=== PATIENT | female | born 1960 | race Caucasian/White ===

== ENCOUNTER 2016-12-12 09:31 | Inpatient (IN) | payer BC ==
[2016-12-12] MEDS ORDERED: SODIUM CHLORIDE 0.9% 1,000 ML IV STA (10:09)
[2016-12-12] MEDS ORDERED: RX INFO: IV CONTRAST WAS GIVEN 1 EACH MISC MISCELLANE PRN (10:11)
[2016-12-12 10:42] LABS: Anisocytosis Slight; Basophils # (A) 0.1 k/uL (0-0.2); Basophils % (A) 1 %; CH 29.2; CHCM 31.6; Eosinophils # (A) 0.1 k/uL (0-0.7); Eosinophils % (A) 1 %; HCT 46.6 % (34.0-46.0); HDW 2.43; HGB 14.5 gm/dL (11.4-16.0); Luc # (Auto) 0.15; Luc % (Auto) 2; Lymphocytes # (A) 1.3 k/uL (1.0-4.8); Lymphocytes % (A) 14 %; MCHC 31.1 g/dL (31.0-37.0); MCV 93.3 fL (80.0-100.0); Mean Platelet Volume 9.1; Monocytes # (A) 0.7 k/uL (0-1.0); Monocytes % (A) 7 %; Neutrophils # (A) 7.5 k/uL (1.3-7.7); Neutrophils % (A) 76 %; RDW 18.9 % (11.5-15.5); WBC 9.8 k/uL (3.8-10.6); WBC (Perox) 8.89
[2016-12-12 10:48] LABS: ALT 114 U/L (9-52); AST 536 U/L (14-36); Alkaline Phosphatase 858 U/L (38-126); Amylase 77 U/L (30-110); Anion Gap 13 mmol/L; Appearance,Urine Clear (Clear); Bilirubin,Urine 2+ (Negative); Blood Urea Nitrogen 15 mg/dL (7-17); Calcium 10.6 mg/dL (8.4-10.2); Carbon Dioxide 22 mmol/L (22-30); Chloride 106 mmol/L (98-107); Glucose 92 mg/dL (74-99); Glucose,Urine (UA) Negative (Negative); Ketones,Urine Negative (Negative); Leukocyte Esterase,Urine Trace (Negative); Mucus,Urine Rare /hpf; Nitrite,Urine Negative (Negative); Non-African American GFR(MDRD) 58 (>60 ml/min/1.73 sqM); Particle Count 3143; Potassium 5.1 mmol/L (3.5-5.1); Protein,Urine Negative (Negative); Sodium 141 mmol/L (137-145); Specific Gravity,Urine 1.005 (1.001-1.035); Squamous Epithelial Cell,Urine <1 /hpf (0-4); Total Bilirubin 11.2 mg/dL (0.2-1.3); Total Protein 6.7 g/dL (6.3-8.2); UA Billing (MACRO vs. MICRO) MICRO; WBC,Urine 3 /hpf (0-5)
[2016-12-12 10:50] LABS: INR 1.1 (<1.2); Partial Thromboplastin Time 25.5 sec (22.0-30.0); Prothrombin Time 11.2 sec (9.0-12.0)
--- NOTE | 2016-12-12 10:53 | ED ---
General Adult HPI - General Chief complaint: Recheck/Abnormal Lab/Rx Stated complaint: breast lump, jaundice, poss dehydration from vomit Time Seen by Provider: 12/12/16 09:59 Source: patient, RN notes reviewed Mode of arrival: ambulatory Limitations: no limitations - History of Present Illness Initial comments: 56-year-old female presenting with chief complaint yellow skin and jaundice. Patient states that she has had jaundice since which was 4 days ago. Her coworkers initially noticed and encouraged her to seek medical attention. Patient also reports some mild shortness of breath. She has had 3 days of nausea vomiting and diarrhea. Patient states her diarrhea and stool is white. Patient is not currently on any medications. She does have a history of molar she had a breast biopsy on her left breast several years ago. Patient also reports having a lump on her right breast which began in August. She noticed some discoloration and blackening of the center of this mass on her right breast over the past several days. Denies fever. Does report some mild epigastric abdominal pain. - Related Data Home Medications Medication Instructions Recorded Confirmed Green Vitamin Unknown 1 tab PO DAILY 12/12/16 12/12/16 Ibuprofen [Motrin] 200 mg PO DAILY PRN 12/12/16 12/12/16 Thyriod Complex 1 tab PO DAILY 12/12/16 12/12/16 Allergies Allergy/AdvReac Type Severity Reaction Status Date / Time codeine Allergy Unknown Verified 12/12/16 10:18 Review of Systems ROS Statement: Those systems with pertinent positive or pertinent negative responses have been documented in the HPI. ROS Other: All systems not noted in ROS Statement are negative. Respiratory: Reports: dyspnea Cardiovascular: Denies: chest pain, palpitations Endocrine: Reports: fatigue Gastrointestinal: Reports: nausea. Denies: vomiting, diarrhea Past Medical History Past Medical History: Cancer Additional Past Medical History / Comment(s): molar History of Any Multi-Drug Resistant Organisms: None Reported Additional Past Surgical History / Comment(s): molar Past Psychological History: Depression Smoking Status: Former smoker Past Alcohol Use History: None Reported Past Drug Use History: None Reported General Exam Limitations: no limitations General appearance: alert, in no apparent distress Head exam: Present: atraumatic, normocephalic Eye exam: Present: PERRL, scleral icterus ENT exam: Present: normal exam, mucous membranes moist Neck exam: Present: normal inspection, full ROM Respiratory exam: Present: normal lung sounds bilaterally. Absent: respiratory distress Cardiovascular Exam: Present: regular rate, normal rhythm GI/Abdominal exam: Present: soft, tenderness (Midepigastric tenderness to palpation). Absent: guarding, rebound, rigid Extremities exam: Present: other (Ecchymosis present bilateral upper and bilateral lower extremities.) Neurological exam: Present: alert, oriented X3 Psychiatric exam: Present: normal affect, normal mood Skin exam: Present: warm, dry, other (Patient has jaundice, multiple ecchymosis , no petechia). Absent: normal color Course Vital Signs 12/12/16 12/12/16 12/12/16 09:33 10:35 12:35 Temperature 98.0 F 98.3 F Pulse Rate 79 76 78 Respiratory 17 16 18 Rate Blood Pressure 147/97 141/91 137/80 O2 Sat by Pulse 98 98 98 Oximetry EKG Findings - EKG Comments: EKG Findings:: Normal sinus rhythm, ventricular rate 81, NE interval 140, QRS duration 72, QTC 422, there is no ST segment elevation or depression Medical Decision Making - Medical Decision Making 56-year-old female with a four-day history of jaundice and a 3 month history of breast mass. Patient is found to have elevated liver enzymes, elevated alk phos , and hyperbilirubinemia. Computed tomography scan of the chest abdomen and pelvis is obtained. This is significant for liver mass and multiple likely metastatic lesions. Patient will be admitted for further evaluation treatment. Case is discussed with general surgery, oncology and gastroenterology are placed on consult. Ultrasound of the right upper quadrant will be obtained. Diagnosis: Hyperbilirubinemia, liver mass, suspicion for metastatic breast cancer. - Lab Data Result diagrams: 12/12/16 10:17 12/12/16 10:17 Lab Results 12/12/16 12/12/16 12/12/16 Range/Units 10:17 10:17 10:17 WBC 9.8 (3.8-10.6) k/uL RBC 5.00 (3.80-5.40) m/uL Hgb 14.5 (11.4-16.0) gm/dL Hct 46.6 H (34.0-46.0) % MCV 93.3 (80.0-100.0) fL MCH 29.0 (25.0-35.0) pg MCHC 31.1 (31.0-37.0) g/dL RDW 18.9 H (11.5-15.5) % Plt Count 325 (150-450) k/uL Neutrophils % 76 % Lymphocytes % 14 % Monocytes % 7 % Eosinophils % 1 % Basophils % 1 % Neutrophils # 7.5 (1.3-7.7) k/uL Lymphocytes # 1.3 (1.0-4.8) k/uL Monocytes # 0.7 (0-1.0) k/uL Eosinophils # 0.1 (0-0.7) k/uL Basophils # 0.1 (0-0.2) k/uL Anisocytosis Slight PT (9.0-12.0) sec INR (<1.2) APTT (22.0-30.0) sec Sodium 141 (137-145) mmol/L Potassium 5.1 (3.5-5.1) mmol/L Chloride 106 (98-107) mmol/L Carbon Dioxide 22 (22-30) mmol/L Anion Gap 13 mmol/L BUN 15 (7-17) mg/dL Creatinine 1.00 (0.52-1.04) mg/dL Est GFR (MDRD) Af Amer >60 (>60 ml/min/1.73 sqM) Est GFR (MDRD) Non-Af 58 (>60 ml/min/1.73 sqM) Glucose 92 (74-99) mg/dL Plasma Lactic Acid Shabbir 1.4 (0.7-2.0) mmol/L Calcium 10.6 H (8.4-10.2) mg/dL Total Bilirubin 11.2 H (0.2-1.3) mg/dL Conjugated Bilirubin 5.4 H (0.0-0.3) mg/dL Unconjugated Bilirubin 1.5 H (0.0-1.1) mg/dL Delta Bilirubin 4.3 H (0.0-0.2) mg/dL AST 536 H (14-36) U/L ALT 114 H (9-52) U/L Alkaline Phosphatase 858 H (38-126) U/L Total Protein 6.7 (6.3-8.2) g/dL Albumin 3.5 (3.5-5.0) g/dL Amylase 77 (30-110) U/L Lipase 302 H (23-300) U/L Urine Color Urine Appearance (Clear) Urine pH (5.0-8.0) Ur Specific Rumson (1.001-1.035) Urine Protein (Negative) Urine Glucose (UA) (Negative) Urine Ketones (Negative) Urine Blood (Negative) Urine Nitrite (Negative) Urine Bilirubin (Negative) Urine Urobilinogen (<2.0) mg/dL Ur Leukocyte Esterase (Negative) Urine WBC (0-5) /hpf Ur Squamous Epith Cells (0-4) /hpf Urine Mucus (None) /hpf Blood Type Blood Type Recheck Antibody Screen Spec Expiration Date 12/12/16 12/12/16 12/12/16 Range/Units 10:17 10:17 10:17 WBC (3.8-10.6) k/uL RBC (3.80-5.40) m/uL Hgb (11.4-16.0) gm/dL Hct (34.0-46.0) % MCV (80.0-100.0) fL MCH (25.0-35.0) pg MCHC (31.0-37.0) g/dL RDW (11.5-15.5) % Plt Count (150-450) k/uL Neutrophils % % Lymphocytes % % Monocytes % % Eosinophils % % Basophils % % Neutrophils # (1.3-7.7) k/uL Lymphocytes # (1.0-4.8) k/uL Monocytes # (0-1.0) k/uL Eosinophils # (0-0.7) k/uL Basophils # (0-0.2) k/uL Anisocytosis PT 11.2 (9.0-12.0) sec INR 1.1 (<1.2) APTT 25.5 (22.0-30.0) sec Sodium (137-145) mmol/L Potassium (3.5-5.1) mmol/L Chloride (98-107) mmol/L Carbon Dioxide (22-30) mmol/L Anion Gap mmol/L BUN (7-17) mg/dL Creatinine (0.52-1.04) mg/dL Est GFR (MDRD) Af Amer (>60 ml/min/1.73 sqM) Est GFR (MDRD) Non-Af (>60 ml/min/1.73 sqM) Glucose (74-99) mg/dL Plasma Lactic Acid Shabbir (0.7-2.0) mmol/L Calcium (8.4-10.2) mg/dL Total Bilirubin (0.2-1.3) mg/dL Conjugated Bilirubin (0.0-0.3) mg/dL Unconjugated Bilirubin (0.0-1.1) mg/dL Delta Bilirubin (0.0-0.2) mg/dL AST (14-36) U/L ALT (9-52) U/L Alkaline Phosphatase (38-126) U/L Total Protein (6.3-8.2) g/dL Albumin (3.5-5.0) g/dL Amylase (30-110) U/L Lipase (23-300) U/L Urine Color Dark Yellow Urine Appearance Clear (Clear) Urine pH 6.0 (5.0-8.0) Ur Specific Rumson 1.005 (1.001-1.035) Urine Protein Negative (Negative) Urine Glucose (UA) Negative (Negative) Urine Ketones Negative (Negative) Urine Blood Negative (Negative) Urine Nitrite Negative (Negative) Urine Bilirubin 2+ H (Negative) Urine Urobilinogen 2.0 (<2.0) mg/dL Ur Leukocyte Esterase Trace H (Negative) Urine WBC 3 (0-5) /hpf Ur Squamous Epith Cells <1 (0-4) /hpf Urine Mucus Rare H (None) /hpf Blood Type A Negative Blood Type Recheck A Neg Antibody Screen NEGATIVE Spec Expiration Date 12/15/2016 - 2317 Disposition Clinical Impression: Hyperbilirubinemia Disposition: ADMITTED IP TO THIS [facility] Condition: Stable Referrals: None,Stated [Primary Care Provider] - 1-2 days Decision to Admit Reason: Admit from EC Decision Date: 12/12/16 Decision Time: 12:40
--- NOTE | 2016-12-12 11:02 | XR ---
EXAMINATION TYPE: XR chest 2V DATE OF EXAM: 12/12/2016 COMPARISON: NONE HISTORY: Shortness of breath TECHNIQUE: Frontal and lateral views of the chest are obtained. FINDINGS: Scattered senescent parenchymal changes noted. Hyperinflation compatible with COPD. No evidence for infiltrate. No evidence for atelectasis. Heart size is stable. Mediastinal structures are stable and grossly unremarkable. No evidence for hilar prominence. Degenerative changes dorsal spine. IMPRESSION: 1. No evidence for acute pulmonary disease.
[2016-12-12 11:46] LABS: Bilirubin, Delta 4.3 mg/dL (0.0-0.2)
--- NOTE | 2016-12-12 12:09 | CT ---
EXAMINATION TYPE: CT ChestAbdPelvis w con DATE OF EXAM: 12/12/2016 COMPARISON: NONE HISTORY: Jaundice, shortness of breath, right-sided breast lump. History of molar . CT DLP: 2149 mGycm. Automated Exposure Control for Dose Reduction was Utilized. CONTRAST: CT scan of the thorax, abdomen and pelvis is performed without oral but with IV Contrast, patient inj ected with 100 mL of Omnipaque 300. FINDINGS: LUNGS: There is minimal linear scarring in the left lung base. There is no concerning parenchymal no dule or mass. There is no pleural effusion or pneumothorax seen bilaterally. The tracheobronchial tr ee is patent. MEDIASTINUM: There are prominent but not enlarged thoracic lymph nodes. For reference there is 1.5 x 0.9 cm pericarinal lymph node on axial image 20. No cardiomegaly or pericardial is seen. OTHER: There is heterogeneous fibroglandular tissue noted bilaterally in both breasts. There is sugge stion of spiculated subareolar region right breast measuring 2.0 x 1.5 cm on axial image 26 there are suspicious asymmetric the enlarged right axillary lymph nodes, for reference 1.3 x 1.3 cm lymph node is seen on axial image 14. There is suspicious skin thickening to the right breast versus opposite l eft breast. Rounded area with peripheral hyperdense foci in the lower left breast could reflect area of prior bio psy, clinical correlation advised seen best near coronal image 40 LIVER/GB: Liver is overall enlarged in size and markedly heterogeneous in appearance with multiple hy podense areas. There is some surrounding ascites along superior and anterior margins. Findings have a pseudocirrhosis appearance and are suspicious for diffuse metastatic or neoplastic involvement. No s uspicious intrahepatic or extra hepatic biliary dilatation is noted. There is stone filled contracted gallbladder without surrounding inflammatory change. PANCREAS: No significant abnormality is seen. SPLEEN: There are several heterogeneous hypodense round lesions scattered throughout the spleen, for reference is 1.6 cm lesion on long axis posteriorly on axial image 51. ADRENALS: There is suspicious heterogeneous masslike thickening left adrenal gland measuring 2.2 x 1. 5 cm on axial image 58. KIDNEYS: No significant abnormality is seen. BOWEL: There is no suspicious small or large bowel dilatation. GENITAL ORGANS: Uterus is surgically absent. There are small to moderate amount of free fluid in pelv is. There is lobulated slightly more regular thin-walled fluid collection in the left lower quadrant anteriorly near axial image 103, given this does not layer dependently a nonsimple fluid product is s uspected. See lymph node section below. LYMPH NODES: There are suspicious round lesions scattered throughout the mesentery of the lower abdom en/upper pelvis, for reference is 2.2 x 1.2 cm lesion in the midline on axial image 106 and a 1.6 x 1 .6 cm lesion just left of midline anteriorly on axial image 110. OSSEOUS STRUCTURES: There are innumerable sclerotic foci throughout the bony structures consistent wi th osseous metastatic disease most prominent involving the pelvis and the entire spine. Disc space narrowing and spurring at lumbosacral junction is incidentally noted. OTHER: There are vertical alexis overlying the rectus of the lower abdomen. IMPRESSION: 1. Diffuse osseous metastatic disease is present. 2. Small amount of lower abdominal and pelvic ascites with peritoneal carcinomatosis or metastasis sotomayor spected as there is nonlayering effusion with adjacent peritoneal nodularity noted as detailed above. 3. Abnormal right breast mass and axillary adenopathy, correlation with diagnostic bilateral breast m ammogram and diagnostic right breast ultrasound including evaluation of axillary level is advised. Pr imary breast malignancy is suspected. 4. Heterogeneous enlarged liver with multiple hypodense masses throughout liver and spleen raises con cern for neoplasm likely related to primary breast cancer. Imaging guided random liver biopsy for tis rj confirmation can be performed if desired. 5. Suspicious left adrenal mass, malignant involvement at this level cannot be excluded
[2016-12-12] MEDS ORDERED: NALOXONE 0.4 MG/ML 1 ML VIAL IV PRN (12:30)
[2016-12-12] MEDS ORDERED: ONDANSETRON 4 MG/2 ML VIAL IVP PRN (12:30)
--- NOTE | 2016-12-12 13:51 | US ---
EXAMINATION TYPE: US abdomen limited DATE OF EXAM: 12/12/2016 COMPARISON: NONE CLINICAL HISTORY: Pain. Jaundice, liver lesions seen on CT EXAM MEASUREMENTS: Liver Length: 25.5 cm Gallbladder Wall: 0.4 cm CBD: 0.5 cm Right Kidney: 11.4 x 3.2 x 4.2 cm Pancreas: Obscured by bowel gas Liver: enlarged, heterogeneous, multiple complex areas noted Gallbladder: filled with sludge and stones, GB wall upper limits of normal Evidence for sonographic Phillips's sign: no CBD: appears wnl as visualized Right Kidney: no evidence of hydronephrosis IMPRESSION: 1. Heterogeneity of the liver with multiple lesions noted felt to reflect metastatic disease. 2 gallb ladder sludge and stones.
[2016-12-12] MEDS: DEXTROSE 5%-0.45% NACL 1,000 ML IV SCH (14:14)
--- NOTE | 2016-12-12 14:21 | P.GSCN ---
History of Present Illness Consult date: 12/12/16 Reason for Consult: Jaundice abdominal pain. History of present illness: Thank you very much for asking us to see this patient. She is a 56-year-old white female who states a coworker noticed that she was jaundiced. She's had some lower abdominal discomfort then nausea and vomiting and diarrhea over the last 4 days. She noted her stools were almost white in color although this morning was slightly greenish. Some weight loss but she can't quantify it. Diffuse abdominal discomfort. She states she had a left breast mammotome biopsy several years ago that was benign. She also had a palpable area of thickening in the right breast that the apparently was biopsied with a needle bullet was inconclusive. She did not go back for follow-up. Hasn't had a mammogram for at least the 2-3 years now. She noticed the increasing swelling in the right breast around the nipple area with darkening of the skin and the nipple area just above it turning a little black in color. Some tenderness noted with it. No nipple discharge. Past history. Positive for hysterectomy for mono surgery. She states she still has one ovary left in place. History of depression. Otherwise fairly healthy. Social history. Quit smoking several years ago. Drinks alcohol socially. Family history noncontributory. Negative for breast cancer. Systems review as above. No chest pain no cough hemoptysis. No fever or chills. No urinary symptoms. No BOAT CLEANER problems. On examination the patient is well-built well-nourished little overweight with a BMI of the 30.4 weighs 90.71 kg. She is obviously jaundiced. Mucous membranes a little on the dry side. Head and neck otherwise normal. Heart regular rhythm lungs are clear. Breasts shows a mass the in the periareolar region just above it probably about 3-4 cm in diameter seems to be mobile and attached to the skin. There is some overlying skin dimpling and retraction. Skin probably secondary to impending ulceration. Palpable nodes Present in the right axilla although small. The abdomen is soft has a well-healed midline scar in the lower abdomen. Mild the upper abdominal tenderness but no guarding or rebound or rigidity no mass or organomegaly. Extremities normal. BOAT CLEANER intact. Laboratory studies reviewed. Hemoglobin and WBC are normal. Bilirubin is up to 11.2 liver enzymes are markedly elevated. Computed tomography scan with and ultrasound were reviewed. She has multiple liver nodules consistent with metastatic disease. Also evidence of carcinomatosis and fluid and mild ascites in the abdomen with the enlarged left adrenal gland probably secondary to metastatic focus. Also evidence of osseous metastases. GallStones and sludge but the common bile duct is not dilated. Impression. Extensive metastatic disease probably with a breast primary with the involvement of the liver bone and abdominal cavity. The jaundice is probably secondary to intrahepatic masses with intrahepatic obstruction. Commendation. Agree with plans for oncology consultation. Percutaneous CT- guided liver biopsy. Poor prognosis. Further management per oncology recommendation. Nothing surgical to offer at this time. Symptomatic treatment for her nausea will follow with you with interest. Past Medical History Past Medical History: Cancer Additional Past Medical History / Comment(s): molar History of Any Multi-Drug Resistant Organisms: None Reported Additional Past Surgical History / Comment(s): molar Past Psychological History: Depression Smoking Status: Former smoker Past Alcohol Use History: None Reported Past Drug Use History: None Reported Medications and Allergies Home Medications Medication Instructions Recorded Confirmed Type Green Vitamin Unknown 1 tab PO DAILY 12/12/16 12/12/16 History Ibuprofen [Motrin] 200 mg PO DAILY PRN 12/12/16 12/12/16 History Thyriod Complex 1 tab PO DAILY 12/12/16 12/12/16 History Allergies Allergy/AdvReac Type Severity Reaction Status Date / Time codeine Allergy Unknown Verified 12/12/16 10:18 Surgical - Exam Vital Signs Temp Pulse Resp BP Pulse Ox 98.0 F 79 17 147/97 98 12/12/16 09:33 12/12/16 09:33 12/12/16 09:33 12/12/16 09:33 12/12/16 09:33 Results - Labs 12/12/16 10:17 12/12/16 10:17 Abnormal Lab Results - Last 24 Hours (Table) 12/12/16 12/12/16 12/12/16 Range/Units 10:17 10:17 10:17 Hct 46.6 H (34.0-46.0) % RDW 18.9 H (11.5-15.5) % Calcium 10.6 H (8.4-10.2) mg/dL Total Bilirubin 11.2 H (0.2-1.3) mg/dL Conjugated Bilirubin 5.4 H (0.0-0.3) mg/dL Unconjugated Bilirubin 1.5 H (0.0-1.1) mg/dL Delta Bilirubin 4.3 H (0.0-0.2) mg/dL AST 536 H (14-36) U/L ALT 114 H (9-52) U/L Alkaline Phosphatase 858 H (38-126) U/L Lipase 302 H (23-300) U/L Urine Bilirubin 2+ H (Negative) Ur Leukocyte Esterase Trace H (Negative) Urine Mucus Rare H (None) /hpf Diabetes panel 12/12/16 Range/Units 10:17 Sodium 141 (137-145) mmol/L Potassium 5.1 (3.5-5.1) mmol/L Chloride 106 (98-107) mmol/L Carbon Dioxide 22 (22-30) mmol/L BUN 15 (7-17) mg/dL Creatinine 1.00 (0.52-1.04) mg/dL Glucose 92 (74-99) mg/dL Calcium 10.6 H (8.4-10.2) mg/dL AST 536 H (14-36) U/L ALT 114 H (9-52) U/L Alkaline Phosphatase 858 H (38-126) U/L Total Protein 6.7 (6.3-8.2) g/dL Albumin 3.5 (3.5-5.0) g/dL Calcium panel 12/12/16 Range/Units 10:17 Calcium 10.6 H (8.4-10.2) mg/dL Albumin 3.5 (3.5-5.0) g/dL Pituitary panel 12/12/16 Range/Units 10:17 Sodium 141 (137-145) mmol/L Potassium 5.1 (3.5-5.1) mmol/L Chloride 106 (98-107) mmol/L Carbon Dioxide 22 (22-30) mmol/L BUN 15 (7-17) mg/dL Creatinine 1.00 (0.52-1.04) mg/dL Glucose 92 (74-99) mg/dL Calcium 10.6 H (8.4-10.2) mg/dL Adrenal panel 12/12/16 Range/Units 10:17 Sodium 141 (137-145) mmol/L Potassium 5.1 (3.5-5.1) mmol/L Chloride 106 (98-107) mmol/L Carbon Dioxide 22 (22-30) mmol/L BUN 15 (7-17) mg/dL Creatinine 1.00 (0.52-1.04) mg/dL Glucose 92 (74-99) mg/dL Calcium 10.6 H (8.4-10.2) mg/dL Total Bilirubin 11.2 H (0.2-1.3) mg/dL AST 536 H (14-36) U/L ALT 114 H (9-52) U/L Alkaline Phosphatase 858 H (38-126) U/L Total Protein 6.7 (6.3-8.2) g/dL Albumin 3.5 (3.5-5.0) g/dL
[2016-12-13] MEDS: ALPRAZolam 0.5 MG TAB PO PRN ×2 (00:42→22:01)
[2016-12-13] MEDS: DEXTROSE 5%-0.45% NACL 1,000 ML IV SCH ×2 (00:45→11:54)
[2016-12-13 07:43] LABS: Anisocytosis Slight; Basophils # (A) 0.1 k/uL (0-0.2); Basophils % (A) 1 %; CHCM 30.8; Eosinophils # (A) 0.1 k/uL (0-0.7); Eosinophils % (A) 1 %; HCT 49.7 % (34.0-46.0); HGB 15.3 gm/dL (11.4-16.0); Hypochromasia Slight; Luc # (Auto) 0.16; Luc % (Auto) 2; Lymphocytes # (A) 1.5 k/uL (1.0-4.8); Lymphocytes % (A) 17 %; MCH 29.2 pg (25.0-35.0); MCHC 30.7 g/dL (31.0-37.0); MCV 95.1 fL (80.0-100.0); Macrocytosis Slight; Mean Platelet Volume 8.5; Monocytes # (A) 0.6 k/uL (0-1.0); Monocytes % (A) 7 %; Neutrophils # (A) 6.3 k/uL (1.3-7.7); Neutrophils % (A) 73 %; RBC 5.22 m/uL (3.80-5.40); WBC 8.7 k/uL (3.8-10.6); WBC (Perox) 8.13
[2016-12-13 07:53] LABS: ALT 114 U/L (9-52); AST 563 U/L (14-36); Alkaline Phosphatase 795 U/L (38-126); Anion Gap 11 mmol/L; Blood Urea Nitrogen 12 mg/dL (7-17); Calcium 10.7 mg/dL (8.4-10.2); Carbon Dioxide 25 mmol/L (22-30); Chloride 108 mmol/L (98-107); Glucose 73 mg/dL (74-99); Non-African American GFR(MDRD) >60 (>60 ml/min/1.73 sqM); Potassium 4.7 mmol/L (3.5-5.1); Sodium 144 mmol/L (137-145); Total Bilirubin 12.8 mg/dL (0.2-1.3); Total Protein 6.8 g/dL (6.3-8.2)
[2016-12-13] MEDS ORDERED: PANTOPRAZOLE 40 MG/10 ML VIAL IV SCH (09:00)
--- NOTE | 2016-12-13 09:14 | HP ---
CHIEF COMPLAINT: A 56-year-old white female with acute jaundice. HISTORY OF PRESENT ILLNESS: A 56-year-old white female came into the hospital with increasing abdominal discomfort and jaundice. Nausea, vomiting over the past 4 days. Stools are white in color to greenish color and increasing abdominal discomfort. She had a left breast mammotome biopsy several years ago , for 2 or 3 years that were all negative. She has some ( ) in her right breast over the last 2 or 3 months at which time but has done nothing about it. She has history of depression. She has had hysterectomy in the past for molar . She has 1 ovary left. She drinks socially but quite smoking and drinking alcohol about 4 or 5 years ago. She used to drink and smoke heavily for years. Family history is negative for breast cancer. REVIEW OF SYSTEMS: A 14-point review of systems negative except for mentioned in HPI. PHYSICAL EXAM: ENDOCRINE: BMI is over 30, weight is 98.7 kilograms. CARDIOVASCULAR: S1, S2. LUNGS: Transmitted upper airway sounds. GI: Soft, nontender. HEMATOLOGIC: Negative Homans. PSYCH: Fair mood and affect. THORACIC EXAM: Per Dr. Duffy. ABDOMEN: Shows distended abdomen, tender to palpation, firm, mild guarding. EXTREMITIES: No signs of edema. SKIN: Skin is yellow, poor skin turgor. CAT scan and ultrasound were done. Shows multiple liver nodules consistent with metastatic disease. Evidence of carcinomatosis and mild ascites in the abdomen, enlarged left adrenal glands secondary to metastatic focus. Osseous metastases. ASSESSMENT: 1. Extensive metastatic cancer, most likely breast primary, involvement of the liver, bone and abdominal cavity. Intrahepatic mass with obstruction. Oncology consultation, CT guided liver biopsy. Continue with current treatment for pain control. Continue with thyroid medications. Await multiple consultations, recommendations. Hemoglobin appears to be stable at this time. Electrolytes will be placed as mentioned above. 2. Hypercalcemia secondary to malignancy most likely. Continue current treatment. MTDD
[2016-12-13] MEDS: ESOMEPRAZOLE 20 MG in SODIUM CHLORIDE 0.9% 50 ML IVPB SCH (09:19)
--- NOTE | 2016-12-13 10:04 | P.CONS ---
History of Present Illness - Reason for Consult Consult date: 12/13/16 jaundice Requesting physician: Osman Gannon - History of Present Illness 56-year-old female presents with new onset of jaundice upper abdominal pain and dark colored urine since of last week. Consultation requested for elevated liver enzymes/jaundice. CT chest abdomen and pelvis reported diffuse osseous metastatic disease with lower abdominal and pelvic ascites with peritoneal R Cunningham ptosis. Abnormal right breast mass with axillary adenopathy. Enlarged liver with multiple hypodense masses raising concern for neoplasm. Demerol ultrasound heterogeneity of the liver with multiple lesions reflective metastatic disease. Gallbladder sludge and stones. CBD 0.5 cm. Total bilirubin 11.2-12.8. Conjugated bilirubin 5.4. AST 536-563. ALT 114. Alkaline phosphatase 795-858. INR 1.1. Myoglobin 14.5. Platelets 325. Review of Systems Constitutional: Denies fever, chills, sweats, weight gain, or loss. HEENT: Negative for migraines, blurred vision or loss, earaches, drainage, tinnitus, oral mucosal lesions, dysphagia, or odynophagia. CARDIAC: Negative for chest pain, arrhythmias, or palpitation. RESPIRATORY: Negative for shortness of breath, hemoptysis, cough, or sputum production. GI: See HPI for pertinent findings. : Negative for hematuria, urgency, frequency, polyuria, or dysuria. GYNc: Denies possibility of . Negative vaginal discharge. MUSCULOSKELETAL: Negative for muscle aches, swelling, arthritis, and arthralgias. NEUROLOGIC: Negative for stroke or TIA. ENDOCRINE: Negative for thyroid problems. SKIN: Negative for rash or itching. PSYCHIATRIC: History of depression. Past Medical History Past Medical History: Cancer Additional Past Medical History / Comment(s): molar History of Any Multi-Drug Resistant Organisms: None Reported Past Surgical History: Adenoidectomy, Hysterectomy, Tonsillectomy Additional Past Surgical History / Comment(s): molar , benign right breast lump removed 1993, D&C in the 1980s Smoking Status: Former smoker - Past Family History Daughter(s) Family Medical History: Myocardial Infarction ([place]) Additional Family Medical History / Comment(s): in 2008 from a heartattack. Medications and Allergies Home Medications Medication Instructions Recorded Confirmed Type Green Vitamin Unknown 1 tab PO DAILY 12/12/16 12/12/16 History Ibuprofen [Motrin] 200 mg PO DAILY PRN 12/12/16 12/12/16 History Thyriod Complex 1 tab PO DAILY 12/12/16 12/12/16 History Allergies Allergy/AdvReac Type Severity Reaction Status Date / Time codeine Allergy Rash/Hives Verified 12/12/16 17:08 Physical Exam Vitals: Vital Signs Temp Pulse Pulse Resp BP BP Pulse Ox 12/13/16 07:00 96.2 F L 54 L 18 117/71 97 12/13/16 00:15 16 12/12/16 23:00 96.7 F L 68 16 134/99 97 12/12/16 17:29 98.5 F 72 16 138/87 98 12/12/16 16:40 97.8 F 64 16 136/73 99 12/12/16 14:17 70 16 130/69 100 12/12/16 12:35 78 18 137/80 98 12/12/16 10:35 98.3 F 76 16 141/91 98 Intake and Output 12/12/16 12/13/16 12/13/16 22:59 06:59 14:59 Intake Total 1540 1040 Balance 1540 1040 Intake: Intake, IV Titration 800 Amount Dextrose 5%-0.45% NaCl 1, 800 000 ml @ 100 mls/hr IV . Q10H [facility] Rx#:[id number] Oral 1540 240 Other: Voiding Method Toilet Toilet # Voids 2 1 1 General appearance: The patient is alert, oriented, in no acute distress. Visibly jaundice. HET: Head is normocephalic and atraumatic. Pupils are equal and reactive. Sclerae icterus Oropharynx is clear without lesions. Neck: Supple. Trachea midline. Heart: S1 S2. Regular rate and rhythm. Lungs: No crackles or wheezes are heard. Abdomen: Soft, nontender, mildly bloated with bowel sounds. No peritoneal signs. No palpable organomegaly or masses. Extremities: Normal skin color and turgor. No cyanosis, rash, ulceration, clubbing, or edema. Radial and pedal pulses are 2/4 bilaterally. Neurological: No focal deficits. Strength and sensation are grossly intact. Results CBC & Chem 7: 12/13/16 07:24 12/13/16 07:24 Labs: Abnormal Lab Results - Last 24 Hours (Table) 12/12/16 12/12/16 12/12/16 Range/Units 10: 10:17 10:17 Hct 46.6 H (34.0-46.0) % MCHC (31.0-37.0) g/dL RDW 18.9 H (11.5-15.5) % Chloride (98-107) mmol/L Glucose (74-99) mg/dL Calcium 10.6 H (8.4-10.2) mg/dL Total Bilirubin 11.2 H (0.2-1.3) mg/dL Conjugated Bilirubin 5.4 H (0.0-0.3) mg/dL Unconjugated Bilirubin 1.5 H (0.0-1.1) mg/dL Delta Bilirubin 4.3 H (0.0-0.2) mg/dL AST 536 H (14-36) U/L ALT 114 H (9-52) U/L Alkaline Phosphatase 858 H (38-126) U/L Lipase 302 H (23-300) U/L TSH (0.465-4.680) mIU/L Urine Bilirubin 2+ H (Negative) Ur Leukocyte Esterase Trace H (Negative) Urine Mucus Rare H (None) /hpf 12/12/16 12/13/16 12/13/16 Range/Units 10: 07:24 07:24 Hct 49.7 H (34.0-46.0) % MCHC 30.7 L (31.0-37.0) g/dL RDW 19.0 H (11.5-15.5) % Chloride 108 H (98-107) mmol/L Glucose 73 L (74-99) mg/dL Calcium 10.7 H (8.4-10.2) mg/dL Total Bilirubin 12.8 H (0.2-1.3) mg/dL Conjugated Bilirubin (0.0-0.3) mg/dL Unconjugated Bilirubin (0.0-1.1) mg/dL Delta Bilirubin (0.0-0.2) mg/dL AST 563 H (14-36) U/L ALT 114 H (9-52) U/L Alkaline Phosphatase 795 H (38-126) U/L Lipase (23-300) U/L TSH 12.400 H (0.465-4.680) mIU/L Urine Bilirubin (Negative) Ur Leukocyte Esterase (Negative) Urine Mucus (None) /hpf CT scan - abdomen: report reviewed (Dr. Pool) CT scan - chest: report reviewed (Dr. Pool) CT scan - pelvis: report reviewed (Dr. Pool) US - abdomen: report reviewed (Dr. Pool) Assessment and Plan (1) Elevated liver enzymes Narrative/Plan: 56-year-old female presents with right breast mass suspicious for malignancy with new onset of jaundice multiple liver lesions metastatic disease per CT imaging. Suspect elevated liver enzymes jaundice secondary to intrahepatic process malignancy. Status: Acute (2) Jaundice Status: Acute (3) Breast mass, right Status: Acute Plan: 1. Patient has been evaluated by oncology. Breast biopsy has been scheduled possible liver biopsy pending clinical course. Continue supportive measures. Thank you for this kind referral and the opportunity to participate in the care of your patient. This consultation was discussed with Dr. Pool. The impression and plan of care have been directed as dictated.
--- NOTE | 2016-12-13 14:03 | P.CONS ---
History of Present Illness - Reason for Consult Consult date: 12/13/16 jaundice, breast and liver mass Requesting physician: Branden Duffy - Chief Complaint jaundice - History of Present Illness Ms. Knapp is a very pleasant female pt with a history of molar treated in 1997 with chemotherapy and benign right breast biopsy back in 2009. Since that time pt has not followed up as directed by her Surgeon and has not had mammography. For the last week she has progressively become more jaundiced, and she states her right breast "turned black", she denies fevers, sweats, she has had vomiting and dry heaves, no hematemesis, occasional cough, denies SOB, mild abd discomfort, bleeding. Review of Systems All systems: negative Constitutional: Reports as per HPI Past Medical History Past Medical History: Cancer Additional Past Medical History / Comment(s): molar History of Any Multi-Drug Resistant Organisms: None Reported Past Surgical History: Adenoidectomy, Hysterectomy, Tonsillectomy Additional Past Surgical History / Comment(s): molar , benign right breast lump removed 1993, D&C in the Smoking Status: Former smoker - Past Family History Daughter(s) Family Medical History: Myocardial Infarction ([place]) Additional Family Medical History / Comment(s): in 2008 from a heartattack. Medications and Allergies Home Medications Medication Instructions Recorded Confirmed Type Green Vitamin Unknown 1 tab PO DAILY 12/12/16 12/12/16 History Ibuprofen [Motrin] 200 mg PO DAILY PRN 12/12/16 12/12/16 History Thyriod Complex 1 tab PO DAILY 12/12/16 12/12/16 History Allergies Allergy/AdvReac Type Severity Reaction Status Date / Time codeine Allergy Rash/Hives Verified 12/12/16 17:08 Physical Exam Vitals: Vital Signs Temp Pulse Pulse Resp BP BP Pulse Ox 12/13/16 08:00 54 L 18 12/13/16 07:00 96.2 F L 54 L 18 117/71 97 12/13/16 00:15 16 12/12/16 23:00 96.7 F L 68 16 134/99 97 12/12/16 17:29 98.5 F 72 16 138/87 98 12/12/16 16:40 97.8 F 64 16 136/73 99 12/12/16 14:17 70 16 130/69 100 12/12/16 12:35 78 18 137/80 98 Intake and Output 12/12/16 12/13/16 12/13/16 22:59 06:59 14:59 Intake Total 1540 1040 Balance 1540 1040 Intake: Intake, IV Titration 800 Amount Dextrose 5%-0.45% NaCl 1, 800 000 ml @ 100 mls/hr IV . Q10H [facility] Rx#:[id number] Oral 1540 240 Other: Voiding Method Toilet Toilet Toilet # Voids 2 1 1 Weight 90.718 kg Patient Weight 12/14/16 06:59 Weight 90.718 kg - Constitutional General appearance: cooperative, no acute distress, obese - EENT Eyes: EOMI, PERRLA, scleral icterus ENT: hearing grossly normal - Neck Neck: no lymphadenopathy - Respiratory Respiratory: bilateral: CTA - Cardiovascular Rhythm: regular Heart sounds: normal: S1, S2 leg Peripheral Edema: bilateral: None - Gastrointestinal General gastrointestinal: no absent bowel sounds, no decreased bowel sounds, no distended, hepatomegaly, no hyperactive bowel sounds, normal bowel sounds, no organomegaly, no rigid, no scaphoid, soft, no splenomegaly, no tenderness, no umbilical hernia, no ventral hernia - Integumentary Integumentary: jaundiced - Neurologic Neurologic: CNII-XII intact - Musculoskeletal Musculoskeletal: strength equal bilaterally - Psychiatric anxious Psychiatric: A&O x's 3, intact judgment & insight right breast has several subcutaneous hard nodules, 4 o clock skin is discolored , no nipple discharge or inversion Results CBC & Chem 7: 12/13/16 07:24 12/13/16 07:24 Labs: Abnormal Lab Results - Last 24 Hours (Table) 12/12/16 12/12/16 12/13/16 Range/Units 10:17 10: 07:24 Hct 49.7 H (34.0-46.0) % MCHC 30.7 L (31.0-37.0) g/dL RDW 19.0 H (11.5-15.5) % Chloride (98-107) mmol/L Glucose (74-99) mg/dL Calcium (8.4-10.2) mg/dL Total Bilirubin (0.2-1.3) mg/dL Conjugated Bilirubin 5.4 H (0.0-0.3) mg/dL Unconjugated Bilirubin 1.5 H (0.0-1.1) mg/dL Delta Bilirubin 4.3 H (0.0-0.2) mg/dL AST (14-36) U/L ALT (9-52) U/L Alkaline Phosphatase (38-126) U/L TSH 12.400 H (0.465-4.680) mIU/L 12/13/16 Range/Units 07:24 Hct (34.0-46.0) % MCHC (31.0-37.0) g/dL RDW (11.5-15.5) % Chloride 108 H (98-107) mmol/L Glucose 73 L (74-99) mg/dL Calcium 10.7 H (8.4-10.2) mg/dL Total Bilirubin 12.8 H (0.2-1.3) mg/dL Conjugated Bilirubin (0.0-0.3) mg/dL Unconjugated Bilirubin (0.0-1.1) mg/dL Delta Bilirubin (0.0-0.2) mg/dL AST 563 H (14-36) U/L ALT 114 H (9-52) U/L Alkaline Phosphatase 795 H (38-126) U/L TSH (0.465-4.680) mIU/L CT scan - abdomen: report reviewed CT scan - chest: report reviewed CT scan - pelvis: report reviewed Assessment and Plan (1) Liver mass Status: Acute (2) Breast mass, right Status: Acute (3) Jaundice Narrative/Plan: related likely to liver mass. GI consulted. Status: Acute Plan: CT CAP unfortunately is highly suggestive of metastatic malignancy, likely breast origin. Case discussed with Dr. Cueva, Dr. Duffy and Interventional Radiology nurse. Right breast is an appropriate target for core biopsy, the same has been requested. We will follow up once biopsy results available.
[2016-12-13] MEDS ORDERED: ZOLPIDEM 5 MG TAB PO PRN (21:00)
[2016-12-14] MEDS: DEXTROSE 5%-0.45% NACL 1,000 ML IV SCH ×3 (00:21→23:02)
[2016-12-14] MEDS ORDERED: DIAZEPAM 5 MG TAB PO ONE (09:00)
[2016-12-14] MEDS: ESOMEPRAZOLE 20 MG in SODIUM CHLORIDE 0.9% 50 ML IVPB SCH (09:51)
--- NOTE | 2016-12-14 09:57 | USB ---
Ultrasound-guided core biopsy spiculated mass right breast DATE OF EXAM: 12/14/2016 CLINICAL HISTORY: Spiculated mass right breast highly suspicious for malignancy The procedure was discussed with the patient. The risks, complications, benefits , and alternatives were discussed and any questions were answered. Informed consent was obtained. The patient was placed supine on the ultrasound table and prepped and draped in the usual sterile fashion. All elements of maximal barrier technique were utilized. Under ultrasound guidance, access into the right breast mass was obtained, and 4 samples were obtained with a 14-gauge core biopsy. Surgical clip was placed. The patient was stable throughout the procedure and remained stable upon discharge from Department of Radiology. IMPRESSION: Successful core biopsy right breast mass under ultrasound guidance. Pathology Results: Malignant BREAST, RIGHT, NEEDLE CORE BIOPSY: INVASIVE CARCINOMA. PENDING IMMUNOHISTOCHEMICAL STAINS. ADDENDUM REPORT BREAST, RIGHT, NEEDLE CORE BIOPSY: INVASIVE DUCTAL CARCINOMA. Recommendation Surgical consult of the right breast. MEREDITH
--- NOTE | 2016-12-14 12:31 | PN ---
SUBJECTIVE: A 56-year-old white female with breast and liver mass, jaundice, was seen by surgeon today, whose recommendations include acute liver mass, acute breast mass, jaundice, possible GI consult or Interventional Radiology biopsy will be needed to be done. Please see further orders. MTDD
--- NOTE | 2016-12-14 18:26 | P.PN ---
Subjective Principal diagnosis: Metastatic disease Patient underwent percutaneous biopsy of the breast mass today. Mild discomfort at this time. Abdominal pain is improved. Objective - Vital Signs Vital signs: Vital Signs Temp 98.0 F 12/14/16 16:14 Pulse 77 12/14/16 16:14 Resp 18 12/14/16 16:14 BP 116/68 12/14/16 16:14 Pulse Ox 95 12/14/16 16:14 Intake & Output 12/13/16 12/14/16 12/14/16 18:59 06:59 18:59 Intake Total 830 Balance 830 Weight 90.718 kg Intake: Oral 830 Other: Voiding Method Toilet Toilet Toilet # Voids 2 4 2 - Exam Abdomen: Soft, mild distention, mild upper abdominal tenderness - Labs CBC & Chem 7: 12/13/16 07:24 12/13/16 07:24 Assessment and Plan (1) Breast mass, right Narrative/Plan: Await biopsy results. Status: Acute
[2016-12-14] MEDS: ALPRAZolam 0.5 MG TAB PO PRN (20:52)
[2016-12-15] MEDS: DEXTROSE 5%-0.45% NACL 1,000 ML IV SCH ×3 (05:46→21:24)
--- NOTE | 2016-12-15 06:29 | PN ---
SUBJECTIVE: A 56-year-old white female who appears to have breast cancer with metastasis to the liver. She is going to undergo a breast biopsy today by Dr. Tellez. Her abdominal pain and jaundice are slightly improving. We will have to come up with a treatment for her for metastatic cancer once the needle biopsy is done. Oncology and ( ) physician consults are appreciated. Labs are reviewed for today. PSYCH: She is alert and oriented x3. INTEGUMENT: She has some jaundice. CARDIOVASCULAR: S1 and S2. LUNGS: Transmitted upper airway sounds. ASSESSMENT: 1. Liver mass. 2. Breast mass. 3. Jaundice secondary to liver mass. 4. Possible highly suggestive metastatic like malignancy, breast in origin. Await for a biopsy to be done, then will decide what to do for follow up treatment. MTDD
[2016-12-15] MEDS: PANTOPRAZOLE 40 MG TABLET PO SCH (08:39)
[2016-12-15] MEDS: [UNRECOGNIZED DRUG - OTHER] PO SCH ×3 (09:52→09:57)
[2016-12-15] MEDS: ALPRAZolam 0.5 MG TAB PO PRN (10:14)
--- NOTE | 2016-12-15 12:59 | P.PN ---
Subjective Principal diagnosis: Metastatic disease Patient has no new complaints. She feels much weaker when she has not receiving IV fluid therapy. Mild abdominal and right breast discomfort. Pathology reports are still pending. Objective - Vital Signs Vital signs: Vital Signs Temp 97.8 F 12/15/16 08:17 Pulse 65 12/15/16 08:17 Resp 18 12/15/16 08:17 BP 115/74 12/15/16 08:17 Pulse Ox 96 12/15/16 08:17 Intake & Output 12/14/16 12/15/16 12/15/16 18:59 06:59 18:59 Intake Total 450 Balance 450 Intake: Oral 450 Other: Voiding Method Toilet Toilet Toilet # Voids 2 1 - Exam Abdomen: Soft, minimal distention, nontender - Labs CBC & Chem 7: 12/13/16 07:24 12/13/16 07:24 Assessment and Plan (1) Breast mass, right Narrative/Plan: Await final pathology reports from the recent core biopsy. No immediate surgical intervention planned at this time. Status: Acute
[2016-12-15] MEDS ORDERED: ALPRAZolam 0.5 MG TAB PO PRN (18:41)
[2016-12-15] MEDS ORDERED: MAGNESIUM HYDROXIDE 2,400 MG/10 ML CUP PO PRN (18:41)
[2016-12-15] MEDS ORDERED: ALPRAZolam 0.5 MG TAB PO SCH (22:00)
[2016-12-16] MEDS: DEXTROSE 5%-0.45% NACL 1,000 ML IV SCH ×2 (06:17→15:17)
[2016-12-16 08:07] VITALS: RESP 18
[2016-12-16] MEDS: PANTOPRAZOLE 40 MG TABLET PO SCH (10:15)
--- NOTE | 2016-12-16 15:22 | PN ---
DATE OF SERVICE: 12/15/2016 SUBJECTIVE: [id number]-old white female 2 days status post breast biopsy. She still remains profusely jaundiced with liver metastases. Awaiting pathology report tomorrow. Diet will be advanced. Possible discharge home for the weekend with followup with Oncology and Radiation planned for tomorrow. Vital signs stable. Afebrile. Abdomen is soft. It is firm and distended. CARDIOVASCULAR: S1, S2. LUNGS: Wheezes ( ) Integument shows jaundice in the skin. Scleral icterus. 1. Hyperbilirubinemia. 2. Acute jaundice. 3. Acute liver inflammation. 4. Breast cancer with liver metastases. Wait for pathology. Advance diet. PT/OT. Discharge home tomorrow. Follow up as an outpatient. [facility]
[2016-12-16 15:43] VITALS: BP 117/77; PULSE 66; TEMP 98
--- NOTE | 2016-12-16 18:49 | P.PN ---
Progress Note - Text The patient states she feels better. She is asking to be discharged home. On exam her vital signs appear stable. The patient is obviously icteric. Abdomen soft nontender. Breast Cancer with liver metastases. Patient will be discharged home per medicine. She can follow-up in the office as an outpatient.
--- NOTE | 2016-12-16 19:05 | P.PN ---
Subjective Principal diagnosis: metastatic breast cancer Pt seen today in follow up, her mother is at bedside. 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 She feels pretty weak. Denies sore throat, SOB, lower extremity swelling. Objective - Vital Signs Vital signs: Vital Signs Temp 98.0 F 12/16/16 15:42 Pulse 66 12/16/16 15:42 Resp 18 12/16/16 15:42 BP 117/77 12/16/16 15:42 Pulse Ox 96 12/16/16 15:42 Intake & Output 12/15/16 12/16/16 12/16/16 18:59 06:59 18:59 Intake Total 1180 1600 Balance 1180 1600 Intake: Intake, IV Titration 800 Amount Dextrose 5%-0.45% NaCl 1, 800 000 ml @ 100 mls/hr IV . Q10H [facility] Rx#:[id number] Oral 1180 800 Other: Voiding Method Toilet Toilet Toilet # Voids 2 2 2 - Constitutional General appearance: Present: cooperative, no acute distress - EENT Eyes: Present: scleral icterus - Gastrointestinal General gastrointestinal: Present: distended, normal bowel sounds, soft - Integumentary Integumentary: Present: jaundiced - Neurologic Neurologic: Present: CNII-XII intact - Musculoskeletal Musculoskeletal: Present: generalized weakness, strength equal bilaterally - Psychiatric Psychiatric: Present: A&O x's 3, appropriate affect, intact judgment & insight - Labs CBC & Chem 7: 12/13/16 07:24 12/13/16 07:24 Assessment and Plan (1) Liver mass Status: Acute (2) Breast mass, right Status: Acute (3) Jaundice Status: Acute (4) Breast carcinoma Narrative/Plan: We discussed breast biopsy results being positive for breast carcinoma, hormone receptor status pending. Pt has disease in the liver and bones making this stage IV disease and therefore not curable but can be manageable for quite some time with new treatments that are available, we have to wait for the hormone status, results of which should be available next week. I assured her that she will have a follow up appt with Dr. Cueva next week to discuss treatment options. Her and her mother had several questions. Pt asked about mastectomy and it was explained that surgery is not an appropriate treatment modality for her due to extensive disease. She also had a lot of questions about disability but I will refer to Soc Work. All questions answered to the best of my ability. Status: Acute
== END 2016-12-16 20:15 | disposition home or self-care (01) | DRG 598 ==
LOC: EC 09:31 → 5ONC 12:30
PROVIDERS: ADMIT Family Medicine; ATTEND Family Medicine
PROC: 0HBT3ZX Excision of Right Breast, Percutaneous Approach, Diagnostic (ICD-10-PCS; principal; 2016-12-14)
DX: C50.919 Malignant neoplasm of unspecified site of unspecified female breast (principal); C78.7 Secondary malignant neoplasm of liver and intrahepatic bile duct; C79.51 Secondary malignant neoplasm of bone; R18.8 Other ascites; E83.52 Hypercalcemia; E66.3 Overweight; K80.20 Calculus of gallbladder without cholecystitis without obstruction; Z82.49 Family history of ischemic heart disease and other diseases of the circulatory system; Z87.891 Personal history of nicotine dependence; Z88.5 Allergy status to narcotic agent
CPT/HCPCS: 36415; 71020; 71260; 74177; 76705; 80053; 81001; 82150; 82248; 83605; 83690; 84439; 84443; 85025; 85610; 85730; 86850; 86900; 86901; 88305; 88342; 93005

== ENCOUNTER 2016-12-21 12:23 | Inpatient (IN) | payer BC ==
[2016-12-21] MEDS: SODIUM CHLORIDE 0.9% 1,000 ML IV SCH (14:25)
[2016-12-21] MEDS ORDERED: ONDANSETRON 4 MG TAB PO PRN (15:22)
[2016-12-21 15:24] LABS: Anisocytosis Moderate; Basophils % (A) 0 %; CH 28.6; CHCM 30.4; Eosinophils # (A) 0.1 k/uL (0-0.7); Eosinophils % (A) 1 %; HCT 44.6 % (34.0-46.0); HDW 2.58; HGB 13.8 gm/dL (11.4-16.0); Hypochromasia Moderate; Luc # (Auto) 0.23; Luc % (Auto) 3; Lymphocytes # (A) 1.3 k/uL (1.0-4.8); Lymphocytes % (A) 14 %; MCH 29.5 pg (25.0-35.0); MCV 95.2 fL (80.0-100.0); Macrocytosis Slight; Mean Platelet Volume 8.8; Monocytes # (A) 0.6 k/uL (0-1.0); Monocytes % (A) 7 %; Neutrophils # (A) 7.1 k/uL (1.3-7.7); Neutrophils % (A) 76 %; RBC 4.68 m/uL (3.80-5.40); RDW 20.5 % (11.5-15.5); WBC 9.4 k/uL (3.8-10.6); WBC (Perox) 8.87
[2016-12-21 15:32] LABS: AST 505 U/L (14-36); Alkaline Phosphatase 657 U/L (38-126); Anion Gap 11 mmol/L; Blood Urea Nitrogen 17 mg/dL (7-17); Calcium 11.2 mg/dL (8.4-10.2); Carbon Dioxide 21 mmol/L (22-30); Chloride 106 mmol/L (98-107); Glucose 63 mg/dL (74-99); Non-African American GFR(MDRD) 53 (>60 ml/min/1.73 sqM); Potassium 4.5 mmol/L (3.5-5.1); Sodium 138 mmol/L (137-145)
[2016-12-21 15:37] LABS: ALT 77 U/L (9-52)
[2016-12-21 15:41] LABS: Total Bilirubin 15.3 mg/dL (0.2-1.3)
[2016-12-21] MEDS: LORazepam 0.5 MG TAB PO PRN (16:56)
--- NOTE | 2016-12-21 17:05 | XR ---
EXAMINATION TYPE: XR chest 2V DATE OF EXAM: 12/21/2016 HISTORY: effusion. REFERENCE: Previous study dated 12/12/2016. FINDINGS: There is apparent elevation of the right hemidiaphragm. There is atelectatic change at the left lung base and also the right lung base. There is blunting of both CP angles. I could not exclude tiny effusions. The heart is not enlarged. IMPRESSION: 1. BIBASILAR ATELECTASIS. 2. I CANNOT EXCLUDE TINY, BILATERAL EFFUSIONS.
[2016-12-21] MEDS: IBUPROFEN 200 MG TAB PO SCH (21:10)
[2016-12-22] MEDS: LORazepam 0.5 MG TAB PO PRN ×3 (02:59→22:12)
[2016-12-22] MEDS: SODIUM CHLORIDE 0.9% 1,000 ML IV SCH ×2 (05:07→16:07)
[2016-12-22 06:00] LABS: Glucose,Whole Blood 51 mg/dL (75-99)
[2016-12-22 06:29] LABS: Glucose,Whole Blood 54 mg/dL (75-99)
[2016-12-22 06:55] LABS: Glucose,Whole Blood 62 mg/dL (75-99)
[2016-12-22] MEDS: FAMOTIDINE 20 MG TAB PO SCH (09:11)
[2016-12-22] MEDS: IBUPROFEN 200 MG TAB PO SCH ×2 (09:12→22:13)
[2016-12-22 09:19] LABS: Glucose,Whole Blood 92 mg/dL (75-99)
--- NOTE | 2016-12-22 10:44 | P.CONS ---
History of Present Illness - Reason for Consult Consult date: 12/22/16 Jaundice Requesting physician: Osman Gannon - History of Present Illness 56-year-old female recently diagnosed with metastatic breast cancer; bone/liver stage IV noncurable presents with worsening weakness jaundice and generalized discomfort. Consultation requested for jaundice. Patient was seen in consultation on 2016 for jaundice. At that time total bilirubin was between 11.2-12.8. CT chest abdomen and pelvis reported diffuse osseous metastatic disease with lower abdominal pelvic ascites with peritoneal carcinomatosis. Liver overall enlarged markedly heterogeneous with multiple hypodense areas with surrounding ascites. No suspicious intrahepatic or extrahepatic biliary dilatation was noted. Discharge total bilirubin on 12/13/2016 was 12.8. Admission total bilirubin 15.3. AST 505. ALT 77. Alkaline phosphatase 657. Review of Systems Constitutional: Denies fever, chills, sweats, weight gain, or loss. HEENT: Negative for migraines, blurred vision or loss, earaches, drainage, tinnitus, oral mucosal lesions, dysphagia, or odynophagia. CARDIAC: Negative for chest pain, arrhythmias, or palpitation. RESPIRATORY: Negative for shortness of breath, hemoptysis, cough, or sputum production. GI: See HPI for pertinent findings. : Negative for hematuria, urgency, frequency, polyuria, or dysuria. GYNc: Metastatic breast cancer. Denies possibility of . Negative vaginal discharge. MUSCULOSKELETAL: Negative for muscle aches, swelling, arthritis, and arthralgias. NEUROLOGIC: Negative for stroke or TIA. ENDOCRINE: Negative for thyroid problems. SKIN: Negative for rash or itching. PSYCHIATRIC: History of depression. All systems: negative (See HPI) Past Medical History Past Medical History: Cancer Additional Past Medical History / Comment(s): molar . dx with breast ca mets to liver ,bone and abd cavity 12-12-16 History of Any Multi-Drug Resistant Organisms: None Reported Past Surgical History: Adenoidectomy, Hysterectomy, Tonsillectomy Additional Past Surgical History / Comment(s): molar , benign right breast lump removed 1993, D&C in the Past Psychological History: Depression Smoking Status: Former smoker Past Alcohol Use History: None Reported Additional Past Alcohol Use History / Comment(s): quit smoking in 2004, quit drinking alcohol in 2005 Past Drug Use History: None Reported - Past Family History Daughter(s) Family Medical History: Myocardial Infarction ([place]) Additional Family Medical History / Comment(s): in 2008 from a heartattack. Medications and Allergies Home Medications Medication Instructions Recorded Confirmed Type Green Vitamin Unknown 1 tab PO DAILY 12/12/16 12/21/16 History Ibuprofen [Motrin] 200 mg PO BID 12/12/16 12/21/16 History Thyriod Complex 1 tab PO DAILY 12/12/16 12/21/16 History Ondansetron [Zofran] 4 mg PO Q12HR PRN 12/21/16 12/21/16 History Ranitidine HCl [Zantac] 150 mg PO DAILY 12/21/16 12/21/16 History Allergies Allergy/AdvReac Type Severity Reaction Status Date / Time codeine Allergy Rash/Hives Verified 12/21/16 14:10 Physical Exam Vitals: Vital Signs Temp Pulse Resp BP Pulse Ox 12/22/16 07:00 97.4 F L 70 18 118/76 99 12/21/16 20:30 97.5 F L 87 16 109/77 97 12/21/16 15:41 70 18 12/21/16 15:00 97.8 F 70 18 113/82 97 Intake and Output 12/21/16 12/22/16 12/22/16 22:59 06:59 14:59 Intake Total 938 Balance 938 Intake: Intake, IV Titration 938 Amount Sodium Chloride 0.9% 1, 938 000 ml @ 75 mls/hr IV . [id number] [facility] Rx#:[id number] Other: Voiding Method Toilet # Voids 1 1 Weight 101.605 kg General appearance: The patient is alert, oriented, in no acute distress. Visibly jaundice. HET: Head is normocephalic and atraumatic. Pupils are equal and reactive. Sclerae icterus. Oropharynx is clear without lesions. Neck: Supple. Trachea midline. Heart: S1 S2. Regular rate and rhythm. Lungs: No crackles or wheezes are heard. Abdomen: Soft, diffuse mild tenderness with ascites, bloated with bowel sounds. No peritoneal signs. Extremities: Normal skin color and turgor. No cyanosis, rash, ulceration, clubbing, or edema. Radial and pedal pulses are 2/4 bilaterally. Neurological: No focal deficits. Strength and sensation are grossly intact. Results CBC & Chem 7: 12/21/16 15:06 12/21/16 15:06 Labs: Abnormal Lab Results - Last 24 Hours (Table) 12/21/16 12/21/16 12/22/16 Range/Units 15:06 15:06 05:58 RDW 20.5 H (11.5-15.5) % Carbon Dioxide 21 L (22-30) mmol/L Creatinine 1.08 H (0.52-1.04) mg/dL Glucose 63 L (74-99) mg/dL POC Glucose (mg/dL) 51 L (75-99) mg/dL Calcium 11.2 H (8.4-10.2) mg/dL Total Bilirubin 15.3 H* (0.2-1.3) mg/dL AST 505 H (14-36) U/L ALT 77 H (9-52) U/L Alkaline Phosphatase 657 H (38-126) U/L Total Protein 6.0 L (6.3-8.2) g/dL Albumin 2.8 L (3.5-5.0) g/dL 12/22/16 12/22/16 Range/Units 06:27 06:52 RDW (11.5-15.5) % Carbon Dioxide (22-30) mmol/L Creatinine (0.52-1.04) mg/dL Glucose (74-99) mg/dL POC Glucose (mg/dL) 54 L 62 L (75-99) mg/dL Calcium (8.4-10.2) mg/dL Total Bilirubin (0.2-1.3) mg/dL AST (14-36) U/L ALT (9-52) U/L Alkaline Phosphatase (38-126) U/L Total Protein (6.3-8.2) g/dL Albumin (3.5-5.0) g/dL Assessment and Plan (1) Cholestatic jaundice Narrative/Plan: Intrahepatic cholestasis secondary to metastatic liver disease Status: Acute (2) Metastatic breast cancer Status: Acute Plan: 1. We'll defer to oncology for further management. Continue supportive measures. No further workup at this time. Thank you for this kind referral and the opportunity to participate in the care of your patient. This consultation was discussed with Dr. Pool. The impression and plan of care have been directed as dictated.
[2016-12-22 11:51] VITALS: BMI 34.0
[2016-12-22] MEDS: DEXTROSE 5%-0.9% NACL 1,000 ML IV SCH (17:20)
[2016-12-22] MEDS ORDERED: ONDANSETRON 4 MG/2 ML VIAL IVP PRN (17:44)
[2016-12-22] MEDS ORDERED: ONDANSETRON 16 MG in SODIUM CHLORIDE 0.9% 50 ML IVPB ONE (18:30)
[2016-12-22] MEDS ORDERED: DEXAMETHASONE SOD PHOSPHATE 10 MG/ML 1 ML VIAL IV ONE (18:30)
[2016-12-22] MEDS ORDERED: SODIUM CHLORIDE 0.9% 250 ML with PAMIDRONATE 60 MG IV ONE ×2 (18:30)
[2016-12-22] MEDS ORDERED: FOSAPREPITANT DIMEGLUMINE 150 MG in SODIUM CHLORIDE 0.9% 145 ML IV ONE (18:30)
[2016-12-22] MEDS ORDERED: FAMOTIDINE 20 MG/2 ML VIAL IVP ONE (18:30)
--- NOTE | 2016-12-22 18:52 | P.CONS ---
History of Present Illness - Reason for Consult Consult date: 12/22/16 metastatic breast cancer Requesting physician: Osman Gannon - Chief Complaint progressive weakness, confusion - History of Present Illness Bernarda is a very pleasant female who was first seen on consult 2016. At that time patient presented with jaundice of about 1 week onset and a history of a right breast mass, initially identified in 2009, biopsy at that time was negative. The breast mass was enlarging and now causing discoloration to the skin. Patient had CT CAP on 12/12/2016 with reported diffuse osseous metastasis, questionable carcinomatosis, the right breast mass was identified with axillary adenopathy, patient also had a large liver with hypodense lesions in both the liver and the spleen. Patient had an abdominal ultrasound that day as well, gallbladder did show some sludge and stones. Patient had a core biopsy of the right breast on 12/14/2016, positive for recent ductal carcinoma, ER/AK positive, HER-2 is equivocal, fish is pending. Patient was discharged on 12/16 with follow-up with Dr. Anay squires for this week. Unfortunately, over the last few days patient states progressive weakness, she was also having confusion to the point where she couldn't fill out her checks. On admit is noted to have a progressively elevating bilirubin of 15.3, calcium level is 11.2 , she has right upper quadrant as well as epigastric discomfort, patient's appetite is poor but she is very thirsty, she denies any nausea or vomiting, shortness of breath or cough, dysuria or hematuria, she states her urine is turning more yellow since admission, her stools currently are white, she denies diarrhea or constipation, no bleeding or swelling. Review of Systems All systems: negative Constitutional: Reports as per HPI Past Medical History Past Medical History: Cancer Additional Past Medical History / Comment(s): molar . dx with breast ca mets to liver ,bone and abd cavity 12-12-16 History of Any Multi-Drug Resistant Organisms: None Reported Past Surgical History: Adenoidectomy, Hysterectomy, Tonsillectomy Additional Past Surgical History / Comment(s): molar , benign right breast lump removed 1993, D&C in the Past Psychological History: Depression Smoking Status: Former smoker Past Alcohol Use History: None Reported Additional Past Alcohol Use History / Comment(s): quit smoking in 2004, quit drinking alcohol in 2005 Past Drug Use History: None Reported - Past Family History Daughter(s) Family Medical History: Myocardial Infarction ([place]) Additional Family Medical History / Comment(s): in 2008 from a heartattack. Medications and Allergies Home Medications Medication Instructions Recorded Confirmed Type Green Vitamin Unknown 1 tab PO DAILY 12/12/16 12/21/16 History Ibuprofen [Motrin] 200 mg PO BID 12/12/16 12/21/16 History Thyriod Complex 1 tab PO DAILY 12/12/16 12/21/16 History Ondansetron [Zofran] 4 mg PO Q12HR PRN 12/21/16 12/21/16 History Ranitidine HCl [Zantac] 150 mg PO DAILY 12/21/16 12/21/16 History Allergies Allergy/AdvReac Type Severity Reaction Status Date / Time codeine Allergy Rash/Hives Verified 12/21/16 14:10 Physical Exam Vitals: Vital Signs Temp Pulse Resp BP Pulse Ox 12/22/16 15:55 98 12/22/16 15:00 98.0 F 70 18 119/73 98 12/22/16 07:00 97.4 F L 70 18 118/76 99 12/21/16 20:30 97.5 F L 87 16 109/77 97 Intake and Output 12/22/16 12/22/16 12/22/16 06:59 14:59 22:59 Intake Total 938 675 Balance 938 675 Intake: Intake, IV Titration 938 600 Amount Sodium Chloride 0.9% 1, 938 600 000 ml @ 75 mls/hr IV . [id number] [facility] Rx#:[id number] Oral 75 Other: Voiding Method Toilet # Voids 1 Weight 101.605 kg Patient Weight 12/23/16 06:59 Weight 101.605 kg - Constitutional General appearance: cooperative, no acute distress, obese - EENT Eyes: EOMI, scleral icterus ENT: normal oropharynx - Neck Neck: no lymphadenopathy - Respiratory Respiratory: bilateral: CTA - Cardiovascular Rhythm: regular Heart sounds: normal: S1, S2 Abnormal Heart Sounds: no systolic murmur, no diastolic murmur, no rub, no S3 Gallop, no S4 Gallop, no click, no other leg Peripheral Edema: bilateral: None - Gastrointestinal liver edge palpable 2-3 FB below costal margin, hard General gastrointestinal: hepatomegaly, normal bowel sounds, soft, tenderness Localized gastrointestinal: tender: RUQ, epigastric periumbilical - Integumentary Integumentary: jaundiced - Neurologic Neurologic: CNII-XII intact - Musculoskeletal Musculoskeletal: generalized weakness - Psychiatric Pt requires reorientation, has to have information repeated, she is calm, she is readily oriented to self and place. Results CBC & Chem 7: 12/21/16 15:06 12/21/16 15:06 Labs: Abnormal Lab Results - Last 24 Hours (Table) 12/22/16 12/22/16 12/22/16 Range/Units 05:58 06:27 06:52 POC Glucose (mg/dL) 51 L 54 L 62 L (75-99) mg/dL Chest x-ray: report reviewed Assessment and Plan (1) Elevated liver enzymes Status: Acute (2) Metastatic breast cancer Status: Acute (3) Hypercalcemia of malignancy Status: Acute Plan: Case discussed with both Dr. Cueva and Dr. Nur. It is felt that pt symptoms and presentation are due to diffuse malignancy in the liver and for quick response a dose of carboplatin has been recommended. This was discussed with pt and sister at bedside. Purpose of treatment and side effects were discussed. All questions answered and pt is willing to proceed, her sister agrees. Carboplatin dose has been calculated with RN and Pharmacy. One dose to be given inpatient. A dose of aredia for hypercalcemia will be given. Labs daily Closely follow pt with Attending.
[2016-12-22] MEDS ORDERED: CARBOplatin 420 MG in SODIUM CHLORIDE 0.9% 250 ML IV ONE (19:00)
[2016-12-22] MEDS: SALT AND SODA MOUTHWASH 1,000 ML PO SCH ×2 (22:12→22:15)
[2016-12-23] MEDS: SODIUM CHLORIDE 0.9% 1,000 ML IV SCH (07:18)
[2016-12-23 07:58] LABS: INR 1.4 (<1.2); Prothrombin Time 13.5 sec (9.0-12.0)
[2016-12-23 08:02] LABS: ALT 72 U/L (9-52); AST 486 U/L (14-36); Alkaline Phosphatase 626 U/L (38-126); Anion Gap 10 mmol/L; Blood Urea Nitrogen 16 mg/dL (7-17); Calcium 10.1 mg/dL (8.4-10.2); Carbon Dioxide 19 mmol/L (22-30); Chloride 111 mmol/L (98-107); Glucose 136 mg/dL (74-99); Non-African American GFR(MDRD) >60 (>60 ml/min/1.73 sqM); Potassium 4.6 mmol/L (3.5-5.1); Sodium 140 mmol/L (137-145); Total Protein 5.7 g/dL (6.3-8.2)
[2016-12-23 08:19] LABS: Total Bilirubin 15.2 mg/dL (0.2-1.3)
[2016-12-23 08:49] LABS: Anisocytosis Moderate; Basophils % (A) 0 %; CH 29.3; CHCM 30.6; Eosinophils % (A) 0 %; HCT 40.2 % (34.0-46.0); HDW 2.67; HGB 12.8 gm/dL (11.4-16.0); Hypochromasia Moderate; Luc # (Auto) 0.03; Luc % (Auto) 1; Lymphocytes # (A) 0.6 k/uL (1.0-4.8); Lymphocytes % (A) 10 %; MCH 30.7 pg (25.0-35.0); MCHC 31.7 g/dL (31.0-37.0); MCV 96.8 fL (80.0-100.0); Macrocytosis Slight; Mean Platelet Volume 9.5; Monocytes # (A) 0.1 k/uL (0-1.0); Monocytes % (A) 2 %; Neutrophils # (A) 5.2 k/uL (1.3-7.7); Neutrophils % (A) 87 %; RBC 4.16 m/uL (3.80-5.40); RDW 21.6 % (11.5-15.5); WBC 5.9 k/uL (3.8-10.6); WBC (Perox) 6.47
[2016-12-23] MEDS: IBUPROFEN 200 MG TAB PO SCH ×2 (09:28→22:20)
[2016-12-23] MEDS: SALT AND SODA MOUTHWASH 1,000 ML PO SCH ×4 (09:28→22:22)
[2016-12-23] MEDS: DEXTROSE 5%-0.9% NACL 1,000 ML IV SCH ×2 (09:29→22:36)
[2016-12-23] MEDS: FAMOTIDINE 20 MG TAB PO SCH (09:29)
[2016-12-23 10:09] LABS: Manual Review Performed
--- NOTE | 2016-12-23 12:11 | P.PN ---
Subjective Principal diagnosis: Jaundice secondary to malignancy, weakness, metabolic encephalopathy Pt seen today in follow up, she received aredia for hypercalcemia and carboplatin for metastatic breast cancer last evening. Pt states feeling better today, she feels a little more clear in her thoughts, she feels stronger , denies oral irritation, nausea, indigestion, ate a little bit, no dysuria, diarrhea or constipation to report, her mother is at the bedside and feels pt looks less jaundiced and is more alert. Objective - Vital Signs Vital signs: Vital Signs Temp 96.7 F L 12/23/16 07:00 Pulse 62 12/23/16 07:00 Resp 16 12/23/16 07:00 BP 120/83 12/23/16 07:00 Pulse Ox 95 12/23/16 07:00 Intake & Output 12/22/16 12/23/16 12/23/16 18:59 06:59 18:59 Intake Total 675 1450 Balance 675 1450 Weight 101.605 kg Intake: Intake, IV Titration 600 50 Amount Ondansetron 16 mg In 50 Sodium Chloride 0.9% 50 ml @ 100 mls/hr IVPB ONCE ONE Rx#:[id number] Sodium Chloride 0.9% 1, 600 000 ml @ 75 mls/hr IV . [id number] [facility] Rx#:[id number] Oral 75 1400 Other: Voiding Method Toilet # Voids 2 - Constitutional General appearance: Present: cooperative, no acute distress, obese - EENT EENT Comment(s): mucus membranes moist Eyes: Present: EOMI, scleral icterus - Respiratory Respiratory: bilateral: CTA - Cardiovascular Heart sounds: normal: S1, S2 - Peripheral edema leg Peripheral Edema: bilateral: None - Gastrointestinal Gastrointestinal Comment(s): less tenderness in epigastric and RUQ area, softer feel to liver edge, still palpable 2-3 FB below costal margin and in epigastric area General gastrointestinal: Present: soft - Integumentary Integumentary Comment(s): jaundice seems slightly improved Integumentary: Present: jaundiced - Neurologic Neurologic: Present: CNII-XII intact - Musculoskeletal Musculoskeletal: Present: generalized weakness, strength equal bilaterally - Psychiatric Psychiatric Comment(s): Pt has mild confusion, mostly related to events of the last few days, today she has better recall of events. Psychiatric: Present: A&O x's 3, appropriate affect - Labs CBC & Chem 7: 12/23/16 07:23 12/23/16 07:23 Labs: Abnormal Lab Results - Last 24 Hours (Table) 12/23/16 12/23/16 12/23/16 Range/Units 07:23 07:23 07:23 RDW 21.6 H (11.5-15.5) % Lymphocytes # 0.6 L (1.0-4.8) k/uL PT 13.5 H (9.0-12.0) sec INR 1.4 H (<1.2) Chloride 111 H (98-107) mmol/L Carbon Dioxide 19 L (22-30) mmol/L Glucose 136 H (74-99) mg/dL Total Bilirubin 15.2 H* (0.2-1.3) mg/dL AST 486 H (14-36) U/L ALT 72 H (9-52) U/L Alkaline Phosphatase 626 H (38-126) U/L Total Protein 5.7 L (6.3-8.2) g/dL Albumin 2.7 L (3.5-5.0) g/dL Assessment and Plan (1) Metabolic encephalopathy Narrative/Plan: Secondary to liver metastasis and hypercalcemia of malignancy. Pt speech is clearer, she is more alert and responsive today after chemo and bisphosphonate treatment. Status: Acute (2) Elevated liver enzymes Narrative/Plan: Secondary to liver metastasis. Pt has had 1st chemo, CMP daily, hydration continues Status: Acute (3) Hypercalcemia of malignancy Narrative/Plan: Aredia given, labs daily, cont hydration. Status: Acute (4) Metastatic breast cancer Narrative/Plan: Pt has had 1st chemotherapy. She states feeling better today, little stronger, more lucid. Treatment will continue on an outpatient basis. Status: Acute
--- NOTE | 2016-12-23 12:48 | HP ---
CHIEF COMPLAINT: 56 -year-old white female admitted with jaundice for one week , progressively worsening. Unable to eat or drink at home. Got dehydrated. Worsening of the jaundice at which time she came to the hospital. She has right breast mass with invasive breast cancer with multiple liver metastases with discoloration of the skin around the breast area as well as spots on the spleen. She also has gallbladder sludge and stones. Recently diagnosed with invasive carcinoma with exact pathology pending still. Elevated bilirubin of 315 on admission. Calcium 11.2, right upper quadrant and acute abdominal pain. Unable to eat or drink or keep liquids or solids down. Stools are white. Diffuse abdominal pain. REVIEW OF SYSTEMS: Negative except for mentioned in HPI. PAST MEDICAL HISTORY: As mentioned earlier, recent breast cancer with liver and spleen metastases, molar , recently diagnosed in the last two weeks breast cancer history, adenoidectomy, hysterectomy, tonsillectomy, surgery for molar , benign breast lump, D&C 1980s. SOCIAL HISTORY: Former smoker. No alcohol. No illicit drugs. Home medications: 1. Motrin. 2. Thyroid complex. 3. Zofran. 4. Zantac. ALLERGIES: CODEINE. Vital signs: Temp 98, pulse 67. Respiratory rate 12 to 18, blood pressure 110/ 70s. O2 98% on room air. HEENT: Shows severely icteric skin. Ophthalmological : Icteric sclerae. She appears to have distended abdomen due to ascites, obesity. Lungs show mild wheeze times four. Heart is regular rate and rhythm. Psych: Fair mood and affect. Neurological: Alert and oriented times three. Ophthalmological: As mentioned earlier. Musculoskeletal: Generalized weakness 3.5 to 4/5 times four extremities. Labs as mentioned above. Platelet count 63,000. Chest x-ray recent ( ) reviewed. ASSESSMENT: 1. Elevated liver enzymes. 2. Breast cancer, metastatic with liver and splenic mets. 3. Hypercalcemic. 4. Underlying ( ). 5. Dehydration. 6. Generalized debility due to weakness and dehydration and poor nutrition. 7. Worsening jaundice, failing outpatient treatment. Hopefully chemotherapy, radiation treatment can be discussed with the patient. MTDD
[2016-12-23] MEDS: LORazepam 0.5 MG TAB PO PRN (17:29)
[2016-12-23] MEDS: HYDROmorphone 1 MG/ML 1 ML SYRINGE IVP PRN (22:21)
[2016-12-24 07:23] LABS: Anisocytosis Moderate; Basophils % (A) 0 %; CHCM 30.5; Eosinophils # (A) 0.1 k/uL (0-0.7); Eosinophils % (A) 1 %; HCT 41.1 % (34.0-46.0); HGB 12.9 gm/dL (11.4-16.0); Hypochromasia Moderate; Luc # (Auto) 0.13; Luc % (Auto) 1; Lymphocytes # (A) 1.1 k/uL (1.0-4.8); Lymphocytes % (A) 10 %; MCH 30.2 pg (25.0-35.0); MCHC 31.4 g/dL (31.0-37.0); Macrocytosis Slight; Mean Platelet Volume 9.6; Monocytes # (A) 0.5 k/uL (0-1.0); Monocytes % (A) 5 %; Neutrophils # (A) 9.3 k/uL (1.3-7.7); Neutrophils % (A) 84 %; RBC 4.28 m/uL (3.80-5.40); RDW 21.2 % (11.5-15.5); WBC 11.1 k/uL (3.8-10.6); WBC (Perox) 12.04
[2016-12-24 07:35] LABS: Polychromasia Present
[2016-12-24 07:36] LABS: Anion Gap 14 mmol/L; Calcium 9.1 mg/dL (8.4-10.2); Carbon Dioxide 15 mmol/L (22-30); Chloride 113 mmol/L (98-107); Glucose 94 mg/dL (74-99); Non-African American GFR(MDRD) >60 (>60 ml/min/1.73 sqM); Sodium 142 mmol/L (137-145)
[2016-12-24] MEDS: FAMOTIDINE 20 MG TAB PO SCH (07:48)
[2016-12-24] MEDS: IBUPROFEN 200 MG TAB PO SCH ×2 (07:48→20:57)
[2016-12-24] MEDS: SALT AND SODA MOUTHWASH 1,000 ML PO SCH ×4 (07:52→20:31)
[2016-12-24 08:03] LABS: Blood Urea Nitrogen 19 mg/dL (7-17); Potassium 4.8 mmol/L (3.5-5.1)
[2016-12-24 08:04] LABS: ALT 90 U/L (9-52); AST 737 U/L (14-36); Alkaline Phosphatase 623 U/L (38-126); Total Bilirubin 14.2 mg/dL (0.2-1.3)
[2016-12-24 08:36] VITALS: RESP 16
--- NOTE | 2016-12-24 10:02 | PN ---
SUBJECTIVE: 56-year-old white female with jaundice secondary to malignancy, metabolic encephalopathy, weakness. She took Aredia for hypercalcemia and carboplatin for metastatic breast cancer. She feels stronger today, much less jaundiced with less indigestion, nausea. She is more alert. She is feeling a little bit better. VITAL SIGNS: Temp 96.7, pulse 62, respiratory rate 16, blood pressure 120/80, O2 is 95% on room air. CONSTITUTIONAL: Cooperative, no acute distress. ENT: Extraocular movements intact. RESPIRATORY: Clear to auscultation. CARDIOVASCULAR: S1/S2. Peripheral edema, none. GI: Tenderness to palpation is lessened. Diffuse abdomen, firm abdomen. INTEGUMENT: Decrease in jaundice compared to yesterday, still moderate amount of jaundice. NEUROLOGIC: Cranial nerves 2-12 intact. PSYCH: A little bit better affect today. White count is 5.9, hemoglobin 12.8, sodium 140, potassium 4.6. Creatinine 0.88. ASSESSMENT: 1. Metabolic encephalopathy. 2. Elevated liver enzymes due to liver metastasis. 3. Hypercalcemia. 4. Malignancy. 5. Metastatic breast cancer. PLAN: Increase ambulation, increase appetite, continue medications for hypercalcemia and malignancy and continue with outpatient chemotherapy. Once she starts eating better we will send her home. MTDD
[2016-12-24] MEDS: DEXTROSE 5%-0.9% NACL 1,000 ML IV SCH ×2 (10:38→12:58)
[2016-12-24] MEDS ORDERED: HYDROCORTISONE SUPPOSITORY 25 MG SUPP RECTAL PRN (12:00)
[2016-12-24] MEDS ORDERED: HYDROCORTISONE 2.5% RECTAL CREAM 30 GM TUBE RECTAL PRN (12:01)
[2016-12-24] MEDS: traMADol 50 MG TAB PO PRN (12:56)
[2016-12-24] MEDS: HYDROmorphone 1 MG/ML 1 ML SYRINGE IVP PRN (20:30)
[2016-12-24] MEDS: LORazepam 0.5 MG TAB PO PRN (20:30)
[2016-12-25 07:40] LABS: Anisocytosis Moderate; Aty Lym Flag Slight; CH 28.9; CHCM 30.2; HCT 41.4 % (34.0-46.0); HDW 2.72; HGB 12.8 gm/dL (11.4-16.0); Hypochromasia Marked; MCH 29.9 pg (25.0-35.0); MCHC 30.8 g/dL (31.0-37.0); Macrocytosis Moderate; RBC 4.26 m/uL (3.80-5.40); RDW 21.6 % (11.5-15.5); WBC (Perox) 11.63
[2016-12-25] MEDS: FAMOTIDINE 20 MG TAB PO SCH (07:49)
[2016-12-25] MEDS: IBUPROFEN 200 MG TAB PO SCH ×2 (07:50→20:32)
[2016-12-25] MEDS: SALT AND SODA MOUTHWASH 1,000 ML PO SCH ×4 (07:50→20:34)
[2016-12-25] MEDS: traMADol 50 MG TAB PO PRN (07:54)
[2016-12-25 08:13] LABS: ALT 124 U/L (9-52); AST 702 U/L (14-36); Alkaline Phosphatase 738 U/L (38-126); Anion Gap 9 mmol/L; Blood Urea Nitrogen 20 mg/dL (7-17); Calcium 8.5 mg/dL (8.4-10.2); Carbon Dioxide 21 mmol/L (22-30); Chloride 114 mmol/L (98-107); Glucose 70 mg/dL (74-99); Non-African American GFR(MDRD) >60 (>60 ml/min/1.73 sqM); Sodium 144 mmol/L (137-145); Total Bilirubin 14.1 mg/dL (0.2-1.3); Total Protein 5.8 g/dL (6.3-8.2)
[2016-12-25 08:16] LABS: Add Differential Manual Differential
[2016-12-25 08:19] LABS: Nucleated Red Blood Cells 0 /100 WBC (0-0); Polychromasia Present; Total Cells Counted 100
[2016-12-25] MEDS ORDERED: FUROSEMIDE 10 MG/ML 2 ML VIAL IV ONE (10:16)
[2016-12-25] MEDS: DOCUSATE 100 MG CAP PO SCH ×2 (10:52→20:31)
[2016-12-25] MEDS: SPIRONOLACTONE 25 MG TAB PO SCH (10:52)
[2016-12-25] MEDS: DEXTROSE 5%-0.9% NACL 1,000 ML IV SCH ×2 (12:51→16:09)
--- NOTE | 2016-12-25 15:09 | P.PN ---
Subjective Principal diagnosis: Stated feeling "Ok", tired. C/O bilateral lower extremities edema Ambulating with assistance Objective - Vital Signs Vital signs: Vital Signs Temp 97.4 F L 12/25/16 07:00 Pulse 73 12/25/16 07:00 Resp 16 12/25/16 07:00 BP 123/71 12/25/16 07:00 Pulse Ox 98 12/25/16 07:00 Intake & Output 12/24/16 12/25/16 12/25/16 18:59 06:59 18:59 Intake Total 032 149 4510 Balance 506 337 7910 Weight 101.605 kg 101.605 kg Intake: Intake, IV Titration 650 675 900 Amount Dextrose 5%-0.9% NaCl 1, 650 675 900 000 ml @ 75 mls/hr IV . [id number] [facility] Rx#:[id number] Oral 240 1400 Other: Voiding Method Toilet Toilet Toilet # Voids 4 1 4 # Bowel Movements 1 - Constitutional General appearance: Present: average body habitus, no acute distress - EENT Eyes: Present: EOMI, PERRLA, scleral icterus - Neck Neck: Present: normal ROM - Respiratory Respiratory: bilateral: CTA - Cardiovascular Rhythm: regular Heart sounds: normal: S1, S2 - Gastrointestinal General gastrointestinal: Present: soft Localized gastrointestinal: tender: RUQ - Integumentary Integumentary: Present: jaundiced - Neurologic Neurologic: Present: CNII-XII intact - Musculoskeletal Musculoskeletal: Present: gait normal - Psychiatric Psychiatric: Present: A&O x's 3, appropriate affect - Labs CBC & Chem 7: 12/25/16 06:29 12/25/16 06:29 Labs: Abnormal Lab Results - Last 24 Hours (Table) 12/25/16 12/25/16 Range/Units 06:29 06:29 MCHC 30.8 L (31.0-37.0) g/dL RDW 21.6 H (11.5-15.5) % Neutrophils # (Manual) 7.8 H (1.3-7.7) k/uL Chloride 114 H (98-107) mmol/L Carbon Dioxide 21 L (22-30) mmol/L BUN 20 H (7-17) mg/dL Glucose 70 L (74-99) mg/dL Total Bilirubin 14.1 H (0.2-1.3) mg/dL AST 702 H (14-36) U/L ALT 124 H (9-52) U/L Alkaline Phosphatase 738 H (38-126) U/L Total Protein 5.8 L (6.3-8.2) g/dL Albumin 2.6 L (3.5-5.0) g/dL Assessment and Plan (1) Dehydration Status: Acute (2) Metabolic encephalopathy Status: Acute (3) Metastatic breast cancer Status: Acute (4) Jaundice Status: Acute Plan: 1- Reviewed lab results with patient 2- Ambulate as tolerated 3- Ok to discharge home 4- Further Chemotherapy as out-patient
[2016-12-25] MEDS: LORazepam 0.5 MG TAB PO PRN (20:32)
[2016-12-26 07:33] LABS: ALT 144 U/L (9-52); AST 681 U/L (14-36); Alkaline Phosphatase 929 U/L (38-126); Anion Gap 9 mmol/L; Blood Urea Nitrogen 18 mg/dL (7-17); Calcium 7.9 mg/dL (8.4-10.2); Carbon Dioxide 20 mmol/L (22-30); Chloride 114 mmol/L (98-107); Glucose 67 mg/dL (74-99); Non-African American GFR(MDRD) >60 (>60 ml/min/1.73 sqM); Potassium 4.3 mmol/L (3.5-5.1); Sodium 143 mmol/L (137-145); Total Protein 5.5 g/dL (6.3-8.2)
[2016-12-26 08:05] VITALS: PULSE 71
[2016-12-26] MEDS: SPIRONOLACTONE 25 MG TAB PO SCH (08:31)
[2016-12-26] MEDS: SALT AND SODA MOUTHWASH 1,000 ML PO SCH ×2 (08:31→11:19)
[2016-12-26] MEDS: IBUPROFEN 200 MG TAB PO SCH (08:31)
[2016-12-26] MEDS: DOCUSATE 100 MG CAP PO SCH (08:31)
[2016-12-26] MEDS: FAMOTIDINE 20 MG TAB PO SCH (08:31)
[2016-12-26 08:52] LABS: Anisocytosis Moderate; Basophils % (A) 0 %; CH 28.5; CHCM 30.3; Eosinophils % (A) 1 %; HCT 40.6 % (34.0-46.0); HDW 2.75; HGB 12.7 gm/dL (11.4-16.0); Hypochromasia Marked; Luc # (Auto) 0.24; Luc % (Auto) 3; Lymphocytes % (A) 14 %; MCH 29.9 pg (25.0-35.0); MCHC 31.4 g/dL (31.0-37.0); MCV 95.3 fL (80.0-100.0); Macrocytosis Slight; Mean Platelet Volume 10.3; Monocytes # (A) 0.6 k/uL (0-1.0); Monocytes % (A) 9 %; Neutrophils # (A) 5.6 k/uL (1.3-7.7); Neutrophils % (A) 74 %; RBC 4.26 m/uL (3.80-5.40); RDW 21.7 % (11.5-15.5); WBC 7.6 k/uL (3.8-10.6); WBC (Perox) 8.73
--- NOTE | 2016-12-26 11:15 | PN ---
SUBJECTIVE: 56-year-old white female with acute dehydration, acute jaundice. She is constipated. Her oral appetite has improved. She is clinically less jaundiced than she was the last couple of days ago. Possible discharge home in the next 24 hours. Vital signs ( ). Cardiovascular S1, S2. Abdomen is distended due to hepatic metastases with possible cytic ( ) . She has 2 to 3+ pedal edema. Discussed with her. I will give her Lasix 20 mg IV times one today. Started on Aldactone 100 mg daily. Possible discharge home tomorrow. MTDD
[2016-12-26] MEDS: LORazepam 0.5 MG TAB PO PRN (11:19)
[2016-12-26] MEDS: DEXTROSE 5%-0.9% NACL 1,000 ML IV SCH (14:41)
[2016-12-26 16:45] VITALS: BP 109/70; TEMP 97
== END 2016-12-26 19:09 | disposition home or self-care (01) | DRG 435 ==
LOC: 5ONC 13:46
PROVIDERS: ADMIT Family Medicine; ATTEND Family Medicine
DX: C78.7 Secondary malignant neoplasm of liver and intrahepatic bile duct (principal); G93.41 Metabolic encephalopathy; C79.51 Secondary malignant neoplasm of bone; C79.89 Secondary malignant neoplasm of other specified sites; R18.8 Other ascites; C50.911 Malignant neoplasm of unspecified site of right female breast; E83.52 Hypercalcemia; E86.0 Dehydration; K59.00 Constipation, unspecified; K80.20 Calculus of gallbladder without cholecystitis without obstruction; F32.9 Major depressive disorder, single episode, unspecified; Z87.891 Personal history of nicotine dependence; Z79.899 Other long term (current) drug therapy; Z88.8 Allergy status to other drugs, medicaments and biological substances; Z82.49 Family history of ischemic heart disease and other diseases of the circulatory system
CPT/HCPCS: 71020; 80053; 85025; 85610; 94760

== ENCOUNTER 2017-01-10 09:54 | Inpatient (IN) | payer BC ==
[2017-01-10] MEDS ORDERED: ONDANSETRON 4 MG/2 ML VIAL IVP STA (10:27)
[2017-01-10] MEDS ORDERED: SODIUM CHLORIDE 0.9% 1,000 ML IV STA (10:27)
[2017-01-10] MEDS ORDERED: SODIUM CHLORIDE 0.9% 500 ML IV STA (10:27)
--- NOTE | 2017-01-10 10:32 | ED ---
Weakness HPI - General Chief complaint: Weakness Stated complaint: weakness Hx Cancer Time Seen by Provider: 01/10/17 10:15 Source: patient, family, RN notes reviewed Mode of arrival: wheelchair Limitations: no limitations - History of Present Illness Initial comments: This is a 56-year-old female with a history of stage IV breast cancer with metastatic disease to the long who presents with complaints of generalized weakness and difficulty breathing exertional dyspnea lack of energy nausea Also per fmily he is becoming more jaundice. Patient does states she's been able to drink fluids she has decreased oral intake otherwise. No overt fevers chills or sweats she is a former smoker MD Complaint: generalized weakness - Related Data Home Medications Medication Instructions Recorded Confirmed Ibuprofen [Motrin] 200 mg PO BID 12/12/16 01/10/17 Ranitidine HCl [Zantac] 150 mg PO DAILY 12/21/16 01/10/17 LORazepam [Ativan] 0.5 mg PO Q6H PRN 01/10/17 01/10/17 Prochlorperazine [Compazine] 10 mg PO Q6H PRN 01/10/17 01/10/17 Spironolactone [Aldactone] 50 mg PO Q12H 01/10/17 01/10/17 oxyCODONE HCL [Roxicodone] 5 mg PO Q12H PRN 01/10/17 01/10/17 Allergies Allergy/AdvReac Type Severity Reaction Status Date / Time codeine Allergy Rash/Hives Verified 01/10/17 11:44 Review of Systems ROS Statement: Those systems with pertinent positive or pertinent negative responses have been documented in the HPI. ROS Other: All systems not noted in ROS Statement are negative. Past Medical History Past Medical History: Cancer Additional Past Medical History / Comment(s): molar . dx with breast ca mets to liver ,bone and abd cavity 12-12-16 History of Any Multi-Drug Resistant Organisms: None Reported Past Surgical History: Adenoidectomy, Hysterectomy, Tonsillectomy Additional Past Surgical History / Comment(s): molar , benign right breast lump removed 1993, D&C in the Past Psychological History: Depression Smoking Status: Former smoker Past Alcohol Use History: None Reported Past Drug Use History: None Reported - Past Family History Daughter(s) Family Medical History: Myocardial Infarction ([place]) Additional Family Medical History / Comment(s): in 2008 from a heartattack. General Exam - General Exam Comments Initial Comments: Is a well-developed jaundice appearing female she is awake alert oriented 3 Limitations: no limitations General appearance: alert, lethargic Head exam: Present: atraumatic, normocephalic, normal inspection Eye exam: Present: PERRL, EOMI, scleral icterus ENT exam: Present: mucous membranes dry Neck exam: Present: normal inspection. Absent: tenderness, meningismus, lymphadenopathy Respiratory exam: Present: normal lung sounds bilaterally. Absent: respiratory distress, wheezes, rales, rhonchi, stridor Cardiovascular Exam: Present: regular rate, normal rhythm, normal heart sounds. Absent: systolic murmur, diastolic murmur, rubs, gallop, clicks GI/Abdominal exam: Present: soft, normal bowel sounds. Absent: distended, tenderness, guarding, rebound, rigid Extremities exam: Present: full ROM, normal capillary refill, pedal edema. Absent: tenderness, joint swelling, calf tenderness Back exam: Present: normal inspection Neurological exam: Present: alert, oriented X3, CN II-XII intact Psychiatric exam: Present: normal affect, normal mood Skin exam: Present: warm, dry, intact, other (Jaundice). 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 I did discuss [employer] her family she'll be admitted for IV antibiotics IV fluids. - Lab Data Result diagrams: 01/10/17 10:29 Lab Results 01/10/17 01/10/17 01/10/17 Range/Units 10:29 10:29 10:29 Sodium 134 L (137-145) mmol/L Potassium 5.9 H (3.5-5.1) mmol/L Chloride 109 H (98-107) mmol/L Carbon Dioxide 13 L (22-30) mmol/L Anion Gap 12 mmol/L BUN 13 (7-17) mg/dL Creatinine 1.04 (0.52-1.04) mg/dL Est GFR (MDRD) Af Amer >60 (>60 ml/min/1.73 sqM) Est GFR (MDRD) Non-Af 55 (>60 ml/min/1.73 sqM) Glucose 71 L (74-99) mg/dL Calcium 9.6 (8.4-10.2) mg/dL Magnesium 2.1 (1.6-2.3) mg/dL Total Bilirubin 21.9 H* (0.2-1.3) mg/dL AST 476 H (14-36) U/L ALT 74 H (9-52) U/L Alkaline Phosphatase 1006 H (38-126) U/L Ammonia (<30) umol/L Total Creatine Kinase 95 (30-135) U/L CK-MB (CK-2) 1.5 (0.0-2.4) ng/mL CK-MB (CK-2) Rel Index 1.6 NT-Pro-B Natriuret Pep 518 pg/mL Total Protein 6.5 (6.3-8.2) g/dL Albumin 2.9 L (3.5-5.0) g/dL Amylase 58 (30-110) U/L Lipase 204 (23-300) U/L 01/10/17 Range/Units 10:29 Sodium (137-145) mmol/L Potassium (3.5-5.1) mmol/L Chloride (98-107) mmol/L Carbon Dioxide (22-30) mmol/L Anion Gap mmol/L BUN (7-17) mg/dL Creatinine (0.52-1.04) mg/dL Est GFR (MDRD) Af Amer (>60 ml/min/1.73 sqM) Est GFR (MDRD) Non-Af (>60 ml/min/1.73 sqM) Glucose (74-99) mg/dL Calcium (8.4-10.2) mg/dL Magnesium (1.6-2.3) mg/dL Total Bilirubin (0.2-1.3) mg/dL AST (14-36) U/L ALT (9-52) U/L Alkaline Phosphatase (38-126) U/L Ammonia 51 H (<30) umol/L Total Creatine Kinase (30-135) U/L CK-MB (CK-2) (0.0-2.4) ng/mL CK-MB (CK-2) Rel Index NT-Pro-B Natriuret Pep pg/mL Total Protein (6.3-8.2) g/dL Albumin (3.5-5.0) g/dL Amylase (30-110) U/L Lipase (23-300) U/L - Radiology Data Radiology results: report reviewed (I did review the imaging and report is evidence of atelectasis versus developing infiltrate), image reviewed Disposition Clinical Impression: Pneumonia, Dehydration, Jaundice, Metastatic breast cancer, Metabolic encephalopathy Disposition: ADMITTED IP TO THIS [facility] Condition: Stable Referrals: João Gannon MD [REFERRING] - 1-2 days
[2017-01-10 11:11] LABS: ALT 74 U/L (9-52); AST 476 U/L (14-36); Alkaline Phosphatase 1006 U/L (38-126); Amylase 58 U/L (30-110); Anion Gap 12 mmol/L; Blood Urea Nitrogen 13 mg/dL (7-17); Calcium 9.6 mg/dL (8.4-10.2); Carbon Dioxide 13 mmol/L (22-30); Chloride 109 mmol/L (98-107); Glucose 71 mg/dL (74-99); Magnesium 2.1 mg/dL (1.6-2.3); Non-African American GFR(MDRD) 55 (>60 ml/min/1.73 sqM); Potassium 5.9 mmol/L (3.5-5.1); Sodium 134 mmol/L (137-145); Total Protein 6.5 g/dL (6.3-8.2)
[2017-01-10 11:21] LABS: Total Bilirubin 21.9 mg/dL (0.2-1.3)
[2017-01-10] MEDS ORDERED: HYDROmorphone 1 MG/ML 1 ML SYRINGE IVP STA (11:30)
[2017-01-10 11:34] LABS: Creatine Kinase MB 1.5 ng/mL (0.0-2.4)
--- NOTE | 2017-01-10 12:20 | XR ---
EXAMINATION TYPE: XR chest 2V DATE OF EXAM: 01/10/2017 COMPARISON: 12/21/16 HISTORY: Shortness of breath TECHNIQUE: Frontal and lateral views of the chest are obtained. FINDINGS: Lung volumes are limited. Basilar atelectasis or developing infiltrates. Scattered senescent parenchymal changes noted. Heart size is stable. Mediastinal structures are stable and grossly unremarkable. No evidence for hilar prominence. Degenerative changes dorsal spine. IMPRESSION: 1. Lung volumes are limited. Basilar atelectasis or developing infiltrates.
[2017-01-10 13:48] LABS: Anisocytosis Marked; Basophils % (A) 0 %; CH 30.8; CHCM 31.2; Eosinophils % (A) 0 %; HCT 44.6 % (34.0-46.0); HDW 3.22; HGB 13.8 gm/dL (11.4-16.0); Hypochromasia Moderate; Luc # (Auto) 0.31; Luc % (Auto) 4; Lymphocytes # (A) 0.5 k/uL (1.0-4.8); Lymphocytes % (A) 6 %; MCH 31.1 pg (25.0-35.0); MCHC 30.9 g/dL (31.0-37.0); Macrocytosis Marked; Mean Platelet Volume 9.2; Monocytes # (A) 0.6 k/uL (0-1.0); Monocytes % (A) 9 %; Neutrophils # (A) 5.8 k/uL (1.3-7.7); Neutrophils % (A) 81 %; RBC 4.43 m/uL (3.80-5.40); WBC 7.2 k/uL (3.8-10.6); WBC (Perox) 9.33
[2017-01-10] MEDS ORDERED: PIPERACILLIN-TAZOBACTAM 3.375 GM in DEXTROSE/WATER 1 50ML.BAG IVPB STA (13:49)
[2017-01-10 14:13] LABS: RDW 25.4 % (11.5-15.5)
[2017-01-10 14:17] LABS: MCV 100.6 fL (80.0-100.0)
[2017-01-10] MEDS ORDERED: PNEUMONIA PROTOCOL UTILIZED 1 EACH MISC PO PRN (14:18)
[2017-01-10 15:16] LABS: Manual Review Performed; Target Cells Present
[2017-01-10 15:18] LABS: Polychromasia Present
[2017-01-10] MEDS: HYDROmorphone 1 MG/ML 1 ML SYRINGE IVP PRN ×2 (16:50→19:56)
[2017-01-10] MEDS: SODIUM CHLORIDE 0.9% 1,000 ML IV SCH (19:55)
[2017-01-10] MEDS: LEVOFLOXACIN 750MG-D5W PMX 750 MG in DEXTROSE/WATER 1 150ML.BAG IVPB SCH (19:55)
[2017-01-10] MEDS: IPRATROPIUM-ALBUTEROL 3 ML NEB INHALATION SCH ×3 (19:56→23:09)
[2017-01-10] MEDS: SPIRONOLACTONE 25 MG TAB PO SCH (21:34)
[2017-01-10] MEDS: IBUPROFEN 200 MG TAB PO SCH (21:34)
[2017-01-10] MEDS ORDERED: IPRATROPIUM-ALBUTEROL 3 ML NEB INHALATION PRN (23:09)
[2017-01-10] MEDS: PIPERACILLIN-TAZOBACTAM 3.375 GM in DEXTROSE/WATER 1 50ML.BAG IVPB SCH (23:30)
[2017-01-11] MEDS: HYDROmorphone 1 MG/ML 1 ML SYRINGE IVP PRN ×3 (02:25→22:32)
[2017-01-11] MEDS: SODIUM CHLORIDE 0.9% 1,000 ML IV SCH ×2 (07:47→17:46)
[2017-01-11] MEDS: SPIRONOLACTONE 25 MG TAB PO SCH ×2 (07:48→22:32)
[2017-01-11] MEDS: IBUPROFEN 200 MG TAB PO SCH (07:48)
[2017-01-11] MEDS: PIPERACILLIN-TAZOBACTAM 3.375 GM in DEXTROSE/WATER 1 50ML.BAG IVPB SCH ×2 (07:51→17:46)
[2017-01-11] MEDS: FAMOTIDINE 20 MG TAB PO SCH (07:51)
[2017-01-11] MEDS: IPRATROPIUM-ALBUTEROL 3 ML NEB INHALATION SCH ×4 (08:15→18:44)
[2017-01-11] MEDS ORDERED: LACTULOSE 20 GM/30 ML CUP PO ONE (08:42)
--- NOTE | 2017-01-11 08:45 | XR ---
EXAMINATION TYPE: XR chest 2V DATE OF EXAM: 01/11/2017 COMPARISON: 01/10/2017 HISTORY: 56-year-old female with pneumonia and shortness of breath TECHNIQUE: Frontal and lateral views FINDINGS: Low lung volumes. Interstitial prominence is a chronic appearance. Heart upper limits of normal in si ze. Trace effusions with adjacent opacities seen on the lateral view. IMPRESSION: Lung volumes. Interstitial changes appear largely chronic and could be accentuated by the hypoventila tory changes. . Trace effusions with adjacent atelectasis and/or consolidation seen on the lateral v iew.
[2017-01-11] MEDS ORDERED: LACTULOSE 20 GM/30 ML CUP PO SCH (09:00)
[2017-01-11 09:36] VITALS: BMI 34.2
[2017-01-11 10:21] LABS: INR 2.6 (<1.2); Partial Thromboplastin Time 41.6 sec (22.0-30.0); Prothrombin Time 25.4 sec (9.0-12.0)
[2017-01-11] MEDS: PROCHLORPERAZINE 10 MG TAB PO PRN ×2 (10:40→16:42)
--- NOTE | 2017-01-11 10:59 | P.HPIM ---
History of Present Illness H&P Date: 01/11/17 Chief Complaint: Generalized weakness and dyspnea This is a 56-year-old female who presented to the emergency room on 01/10/2017 with a chief complaint of generalized weakness, dyspnea, decreased energy, nausea, and jaundice. Patient also stated she has had decreased oral intake over the past few days. Patient has a history of stage IV breast cancer with metastases to the liver and spleen. Patient was recently hospitalized in November 2016 for jaundice and at that time was diagnosed with metastatic breast cancer. At that time patient also had an elevated bilirubin of 315, hypercalcemia of 11.2, and abdominal pain. Patient has a history of the left breast biopsy several years ago (2009) that was benign. Additionally she had a palpable thickening in her right breast that was biopsied per patient and was inconclusive. Patient did not follow-up and states she has not had a mammogram for a few years. Oncology was consulted. Patient underwent a right breast needle biopsy on 12/14/2016. Pathology results indicated invasive carcinoma. Patient had a CT of the chest abdomen and pelvis on 12/12/2016, which showed small amount of lower abdominal and pelvic ascites with peritoneal carcinomatosis or metastasis suspected. Abnormal right breast mass and axillary adenopathy, heterogeneous enlarged liver with multiple hypodense masses throughout the liver and spleen. Patient was afebrile at time of admission with a temperature of 97.1. Vital signs stable upon admission. Blood pressure 126/85, heart rate 94, respiratory 18, oxygen saturation 98%. Liver enzymes were elevated at the time of admission. AST was 476 and ALT 74. Ammonia level was 51 and alk phos 1006. Potassium was 5.9. Chest x-ray reveals atelectasis versus developing infiltrate. Patient was admitted for IV antibiotics and IV fluid replacement. Patient was seen and examined this morning on rounds with Dr. Gannon. Patient does not appear in any acute distress however patient states she feels "more down than I should feel ". Patient states oncologist saw her this morning and does not recommend chemotherapy at this time. INR this morning 2.6. Review of Systems GENERAL: Patient denies fever, chills. Positive for generalized weakness and fatigue. RESPIRATORY: Positive for shortness of breath and dyspnea with exertion. Denies sputum production or hemoptysis. CARDIOVASCULAR: Denies chest pain, pressure, palpitations, claudication, or arrhythmias. GI: Positive for nausea. Denies abdominal pain, diarrhea, incontinence, heartburn, constipation, or blood in the stool. : Denies urinary frequency, burning, dysuria, or cloudy urine. Denies blood in the urine. SKIN: Positive for jaundice MUSCULOSKELETAL: Denies cramps, swelling, or decreased range of motion. Past Medical History Past Medical History: Cancer Additional Past Medical History / Comment(s): molar . dx with breast ca mets to liver ,bone and abd cavity 12-12-16 History of Any Multi-Drug Resistant Organisms: None Reported Past Surgical History: Adenoidectomy, Hysterectomy, Tonsillectomy Additional Past Surgical History / Comment(s): molar , benign right breast lump removed 1993, D&C in the Past Anesthesia/Blood Transfusion Reactions: No Reported Reaction Additional Past Anesthesia/Blood Transfusion Reaction / Comment(s): blood transfusion-had reation to [facility]. Smoking Status: Former smoker - Past Family History Daughter(s) Family Medical History: Myocardial Infarction ([place]) Additional Family Medical History / Comment(s): in 2008 from a heartattack. Mother Family Medical History: No Reported History Father Family Medical History: Hypertension, Myocardial Infarction ([place]) Medications and Allergies Home Medications Medication Instructions Recorded Confirmed Type Ibuprofen [Motrin] 200 mg PO BID 12/12/16 01/10/17 History Ranitidine HCl [Zantac] 150 mg PO DAILY 12/21/16 01/10/17 History LORazepam [Ativan] 0.5 mg PO Q6H PRN 01/10/17 01/10/17 History Prochlorperazine [Compazine] 10 mg PO Q6H PRN 01/10/17 01/10/17 History Spironolactone [Aldactone] 50 mg PO Q12H 01/10/17 01/10/17 History oxyCODONE HCL [Roxicodone] 5 mg PO Q12H PRN 01/10/17 01/10/17 History Allergies Allergy/AdvReac Type Severity Reaction Status Date / Time codeine Allergy Rash/Hives Verified 01/10/17 11:44 Physical Exam Vitals: Vital Signs Temp Pulse Pulse Pulse Resp BP BP 01/11/17 08:25 92 01/11/17 08:15 92 01/11/17 07:00 96.9 F L 92 16 103/67 01/10/17 23:30 16 01/10/17 20:09 96 16 01/10/17 20:00 92 16 01/10/17 19:56 97.6 F 93 16 124/74 01/10/17 19:00 95 20 118/80 01/10/17 17:54 109/72 01/10/17 16:31 101 H 18 120/72 01/10/17 15:00 92 18 114/68 01/10/17 14:00 94 18 126/85 01/10/17 13:00 96 18 115/79 01/10/17 12:39 98 19 115/78 01/10/17 11:20 97.1 F L 94 18 117/80 01/10/17 11:01 93 Pulse Ox 01/11/17 08:25 01/11/17 08:15 01/11/17 07:00 96 01/10/17 23:30 01/10/17 20:09 01/10/17 20:00 01/10/17 19:56 99 01/10/17 19:00 97 01/10/17 17:54 01/10/17 16:31 01/10/17 15:00 97 01/10/17 14:00 98 01/10/17 13:00 97 01/10/17 12:39 98 01/10/17 11:20 100 01/10/17 11:01 Intake and Output 01/10/17 01/11/17 01/11/17 22:59 06:59 14:59 Intake Total 1080 Balance 1080 Intake: Intake, IV Titration 840 Amount Levofloxacin 750Mg-D5w 150 Pmx 750 mg In Dextrose/ Water 1 150ml.bag @ 100 mls/hr IVPB Q24H SHANTELL Rx#: [id number] Piperacillin-Tazobactam 3 50 .375 gm In Dextrose/Water 1 50ml.bag @ 12.5 mls/hr IVPB Q8HR SHANTELL Rx#: [id number] Sodium Chloride 0.9% 1, 640 000 ml @ 80 mls/hr IV . [id number] SHANTELL Rx#:[id number] Oral 240 Other: # Voids 1 Weight 102.058 kg Patient Weight 01/12/17 06:59 Weight 102.058 kg GENERAL: Pleasant. Cooperative, no acute distress. RESPIRATORY: Lungs clear bilaterally. No use of accessory muscles. Patient maintaining oxygen saturation greater than 92%. CARDIOVASCULAR: S1 and S2 noted. No murmurs auscultated. No JVD noted. EXTREMITIES: 2+ lower extremity edema. Palpable pedal pulses +2. ABDOMEN: Ascites present. Abdomen soft and round. Normal active bowel sounds auscultated 4 quadrants. No pain or tenderness noted upon palpation. SKIN: Jaundice Results CBC & Chem 7: 01/10/17 13:20 01/10/17 10:29 Labs: Abnormal Lab Results - Last 24 Hours (Table) 01/10/17 01/10/17 01/10/17 Range/Units 10:29 10:29 13:20 MCV 100.6 H D (80.0-100.0) fL MCHC 30.9 L (31.0-37.0) g/dL RDW 25.4 H (11.5-15.5) % Lymphocytes # 0.5 L (1.0-4.8) k/uL Sodium 134 L (137-145) mmol/L Potassium 5.9 H (3.5-5.1) mmol/L Chloride 109 H (98-107) mmol/L Carbon Dioxide 13 L (22-30) mmol/L Glucose 71 L (74-99) mg/dL Total Bilirubin 21.9 H* (0.2-1.3) mg/dL AST 476 H (14-36) U/L ALT 74 H (9-52) U/L Alkaline Phosphatase 1006 H (38-126) U/L Ammonia 51 H (<30) umol/L Albumin 2.9 L (3.5-5.0) g/dL Thrombosis Risk Factor Assmnt - Choose All That Apply Any of the Below Risk Factors Present?: Yes Each Factor Represents 1 point: Age 41-60 years, Serious lung disease incl. pneumonia (< 1month), Swollen legs (current) Other Risk Factors: Yes Each Risk Factor Represents 2 Points: Malignancy Other congenital or acquired thrombophilia - If yes, enter type in comment: No Thrombosis Risk Factor Assessment Total Risk Factor Score: 5 Thrombosis Risk Factor Assessment Level: High Risk Assessment and Plan (1) Jaundice Narrative/Plan: Present on admission Status: Acute (2) Pneumonia Narrative/Plan: Suspect due to developing infiltrates as shown on x-ray. Patient on IV antibiotics Status: Acute (3) Metastatic breast cancer Narrative/Plan: Diagnosed in November 2016. Patient has metastases to the liver and spleen Status: Acute (4) Dehydration Narrative/Plan: Due to decreased fluid intake Status: Acute (5) Dyspnea on exertion Status: Acute (6) Generalized weakness Narrative/Plan: Likely due to metastatic breast cancer and pneumonia Status: Acute (7) Elevated liver enzymes Status: Acute Plan: Plan Continue to monitor coagulation studies. INR this morning 2.6 Monitor liver enzymes and electrolytes. We'll repeat in the a.m. GI/DVT Prophylaxis Continue IV antibiotics for suspected pneumonia. Repeat chest x-ray in the morning Await further recommendations from Dr. Rodriguez regarding metastatic breast cancer. Encourage increased oral intake. Continue to monitor ammonia levels. Ammonia level 51 currently. Continue to monitor vital signs and addressed appropriately Consult to PT and OT for weakness and debility The above impression and plan of care have been discussed and directed by signing physician. Umu Cruz, nurse practitioner, acting as scribe for signing physician.
[2017-01-11] MEDS: LEVOFLOXACIN 750MG-D5W PMX 750 MG in DEXTROSE/WATER 1 150ML.BAG IVPB SCH (15:56)
--- NOTE | 2017-01-11 18:30 | P.CONS ---
History of Present Illness - Reason for Consult Consult date: 01/11/17 metastatic breast cancer Requesting physician: Genaro Palomo - Chief Complaint weakness - History of Present Illness Please refer to consult dictated 12/22 for full details of diagnosis of malignancy. Pt was recently diagnosed with metastatic breast cancer with severe liver dysfunction from metastatic disease. Pt was given a 1st dose of carboplatin in the hospital in hopes of acting quickly on the disease and because it is process through the kidney and not the liver. Pt experienced a brief reprieve from symptoms-jaundice was a little less, less abd pain. She saw Dr. Cueva on and was beginning to feel progressively worse, she did get hydration in the office twice. Pt and her mother were going to meet today with Dr. Cueva to discuss if pt felt she wanted to continue. Pt is admitted with progressive weakness, she is lethargic and very weak, she has abd pain that she says dilaudid helps, she is not hungry, mild nausea, very thirsty, she states light stools and dark urine, she also stated to me that she will probably "fall asleep" while I and talking to her. Review of Systems ROS unobtainable: due to mental status All systems: negative Past Medical History Past Medical History: Cancer Additional Past Medical History / Comment(s): molar . dx with breast ca mets to liver ,bone and abd cavity 12-12-16 History of Any Multi-Drug Resistant Organisms: None Reported Past Surgical History: Adenoidectomy, Hysterectomy, Tonsillectomy Additional Past Surgical History / Comment(s): molar , benign right breast lump removed 1993, D&C in the Past Anesthesia/Blood Transfusion Reactions: No Reported Reaction Additional Past Anesthesia/Blood Transfusion Reaction / Comm: blood transfusion- had reation to it - [facility]. Smoking Status: Former smoker - Past Family History Daughter(s) Family Medical History: Myocardial Infarction ([place]) Additional Family Medical History / Comment(s): in 2008 from a heartattack. Mother Family Medical History: No Reported History Father Family Medical History: Hypertension, Myocardial Infarction ([place]) Medications and Allergies Home Medications Medication Instructions Recorded Confirmed Type Ibuprofen [Motrin] 200 mg PO BID 12/12/16 01/10/17 History Ranitidine HCl [Zantac] 150 mg PO DAILY 12/21/16 01/10/17 History LORazepam [Ativan] 0.5 mg PO Q6H PRN 01/10/17 01/10/17 History Prochlorperazine [Compazine] 10 mg PO Q6H PRN 01/10/17 01/10/17 History Spironolactone [Aldactone] 50 mg PO Q12H 01/10/17 01/10/17 History oxyCODONE HCL [Roxicodone] 5 mg PO Q12H PRN 01/10/17 01/10/17 History Allergies Allergy/AdvReac Type Severity Reaction Status Date / Time codeine Allergy Rash/Hives Verified 01/10/17 11:44 Physical Exam Vitals: Vital Signs Temp Pulse Pulse Resp BP BP Pulse Ox 01/11/17 15:43 90 01/11/17 15:35 97 01/11/17 15:30 92 01/11/17 15:00 97.5 F L 91 16 111/72 94 L 01/11/17 12:07 95 01/11/17 11:55 89 01/11/17 08:25 92 01/11/17 08:15 92 01/11/17 08:00 16 01/11/17 07:00 96.9 F L 92 16 103/67 96 01/10/17 23:30 16 01/10/17 20:09 96 16 01/10/17 20:00 92 16 01/10/17 19:56 97.6 F 93 16 124/74 99 01/10/17 19:00 95 20 118/80 97 Intake and Output 01/11/17 01/11/17 01/11/17 06:59 14:59 22:59 Intake Total 1080 840 Balance 1080 840 Intake: Intake, IV Titration 840 840 Amount Levofloxacin 750Mg-D5w 150 150 Pmx 750 mg In Dextrose/ Water 1 150ml.bag @ 100 mls/hr IVPB Q24H [facility]ANTELL Rx#: [id number] Piperacillin-Tazobactam 3 50 50 .375 gm In Dextrose/Water 1 50ml.bag @ 12.5 mls/hr IVPB Q8HR [facility]ANTELL Rx#: [id number] Sodium Chloride 0.9% 1, 640 640 000 ml @ 80 mls/hr IV . [id number] SHANTELL Rx#:[id number] Oral 240 Other: Voiding Method Toilet Toilet # Voids 1 2 Weight 102.058 kg Patient Weight 01/12/17 06:59 Weight 102.058 kg - Constitutional General appearance: cooperative, disheveled, mild distress, obese - EENT dry, jaundiced mucus membranes, Eyes: EOMI, scleral icterus - Respiratory Respiratory: bilateral: CTA - Cardiovascular Rhythm: regular Heart sounds: normal: S1, S2 leg Peripheral Edema: bilateral: None - Gastrointestinal General gastrointestinal: distended, normal bowel sounds, soft - Integumentary Integumentary: jaundiced - Neurologic lethargic, general weakness - Musculoskeletal Musculoskeletal: generalized weakness - Psychiatric Pt aware that she is lethargic and not thinking clearly Results CBC & Chem 7: 01/10/17 13:20 01/10/17 10:29 Labs: Abnormal Lab Results - Last 24 Hours (Table) 01/11/17 Range/Units 09:42 PT 25.4 H (9.0-12.0) sec INR 2.6 H (<1.2) APTT 41.6 H (22.0-30.0) sec Chest x-ray: report reviewed Assessment and Plan (1) Elevated liver enzymes Narrative/Plan: Secondary to metastatic disease, bilirubin continues to increase, LFTs are stable. Cont hydration, labs daily Status: Acute (2) Jaundice Narrative/Plan: Secondary to metastatic disease Status: Acute (3) Metabolic encephalopathy Narrative/Plan: Due to elevated liver enzymes, ammonia elevated. Lactulose x 1 dose ordered, recheck lab in AM Status: Acute (4) Metastatic breast cancer Narrative/Plan: Pt and mother saw Dr. Cueva about 2 weeks ago and were due to follow up today in the office. Dr. Cueva had reviewed diagnosis, prognosis, severe liver dysfunction creating additional challenge to treatment. Meeting to discuss plan of care sched for 830 AM. Will communicate pt wishes. Status: Acute (5) Coagulopathy Narrative/Plan: Due to liver disease. INR 2.6, pt is auto-anticoagulated, no DVT prophylaxis needed. Do not administer ASA, NSAIDs or anticoagulation. Status: Acute
[2017-01-12] MEDS: PIPERACILLIN-TAZOBACTAM 3.375 GM in DEXTROSE/WATER 1 50ML.BAG IVPB SCH ×3 (00:22→15:11)
[2017-01-12] MEDS: SODIUM CHLORIDE 0.9% 1,000 ML IV SCH ×2 (06:18→17:52)
[2017-01-12 07:44] LABS: Anisocytosis Marked; Aty Lym Flag Marked; CH 30.9; CHCM 30.9; HCT 41.3 % (34.0-46.0); HDW 3.12; HGB 12.7 gm/dL (11.4-16.0); Hypochromasia Moderate; MCH 31.3 pg (25.0-35.0); MCHC 30.8 g/dL (31.0-37.0); MCV 101.5 fL (80.0-100.0); Macrocytosis Marked; Mean Platelet Volume 9.2; RBC 4.07 m/uL (3.80-5.40); RDW 24.9 % (11.5-15.5); WBC 4.6 k/uL (3.8-10.6); WBC (Perox) 7.55
[2017-01-12 08:02] LABS: Calcium 8.8 mg/dL (8.4-10.2); Potassium 4.6 mmol/L (3.5-5.1); Total Protein 5.4 g/dL (6.3-8.2)
[2017-01-12 08:10] LABS: INR 3.5 (<1.2); Prothrombin Time 34.1 sec (9.0-12.0)
[2017-01-12] MEDS: PROCHLORPERAZINE 10 MG TAB PO PRN ×2 (08:10→21:06)
[2017-01-12 08:16] LABS: Total Bilirubin 21.7 mg/dL (0.2-1.3)
[2017-01-12] MEDS: IPRATROPIUM-ALBUTEROL 3 ML NEB INHALATION SCH ×4 (08:37→20:51)
[2017-01-12] MEDS ORDERED: FUROSEMIDE 10 MG/ML 4 ML VIAL IV SCH (09:00)
[2017-01-12] MEDS: HYDROmorphone 1 MG/ML 1 ML SYRINGE IVP PRN ×2 (09:05→15:22)
[2017-01-12] MEDS: SPIRONOLACTONE 25 MG TAB PO SCH ×2 (09:07→21:06)
[2017-01-12] MEDS: FAMOTIDINE 20 MG TAB PO SCH (09:07)
[2017-01-12 10:00] LABS: Add Differential Manual Differential
[2017-01-12 10:04] LABS: Myelocytes % 1 %; Nucleated Red Blood Cells 0 /100 WBC (0-0)
[2017-01-12 10:06] LABS: Band Neutrophils % 1 %; Total Cells Counted 200
[2017-01-12 10:07] LABS: Target Cells Present
--- NOTE | 2017-01-12 10:31 | XR ---
EXAMINATION TYPE: XR chest 1V DATE OF EXAM: 01/12/2017 COMPARISON: 01/11/2017 HISTORY: 56 year-old female follow-up pneumonia TECHNIQUE: Single frontal view of the chest is obtained. FINDINGS: The lung volumes with crowded vascular markings. Heart appears normal size. Medial right basilar opac ity suspected to represent crowded vasculature. Trace left pleural effusion persists. IMPRESSION: Relatively similar exam with hypoventilatory changes and trace left effusion with adjacent atelectasi s and/or consolidation.
--- NOTE | 2017-01-12 11:49 | P.PN ---
Subjective Principal diagnosis: 56-year-old patient seen this morning on rounds. Patient states she is in better spirits than she was yesterday. Patient states she does not have much of an appetite and only ate a couple bites of her breakfast. Patient states if she forces herself to eat more than that she begins to feel nauseous. Patient denies any chest pain. Patient states she has shortness of breath with exertion when walking to the bathroom. Suggested possible bedside commode to nursing staff. Patient states she is waiting for oncologist to see her this morning to discuss plan of care. Dr. Gannon discussed the possibility of ECF placement with patient this morning. Patient states she would like to further discuss this with her family. Objective - Vital Signs Vital signs: Vital Signs Temp 97.9 F 01/12/17 07:00 Pulse 91 01/12/17 07:00 Resp 16 01/12/17 07:00 BP 105/55 01/12/17 07:00 Pulse Ox 97 01/12/17 07:00 Intake & Output 01/11/17 01/12/17 01/12/17 18:59 06:59 18:59 Intake Total 840 Balance 840 Weight 102.058 kg Intake: Intake, IV Titration 840 Amount Levofloxacin 750Mg-D5w 150 Pmx 750 mg In Dextrose/ Water 1 150ml.bag @ 100 mls/hr IVPB Q24H [facility] Rx#: [id number] Piperacillin-Tazobactam 3 50 .375 gm In Dextrose/Water 1 50ml.bag @ 12.5 mls/hr IVPB Q8HR [facility] Rx#: [id number] Sodium Chloride 0.9% 1, 640 000 ml @ 80 mls/hr IV . [id number] [facility] Rx#:[id number] Other: Voiding Method Toilet Toilet # Voids 2 1 - Exam GENERAL: Alert. more awake than yesterday. Pleasant. Jaundice RESPIRATORY: Lungs clear bilaterally. No use of accessory muscles. Patient maintaining oxygen saturation greater than 92%. CARDIOVASCULAR: S1 and S2 noted. No murmurs auscultated. No JVD noted. EXTREMITIES: 2-3+ lower extremity edema. Palpable pedal pulses +2. ABDOMEN: Distended, ascites present, bowel sounds auscultated 4 quadrants. No pain or tenderness noted upon palpation. SKIN: Jaundice present - Labs CBC & Chem 7: 01/12/17 07:21 01/12/17 07:21 Labs: Abnormal Lab Results - Last 24 Hours (Table) 01/12/17 01/12/17 01/12/17 Range/Units 07:21 07:21 07:21 MCV 101.5 H (80.0-100.0) fL MCHC 30.8 L (31.0-37.0) g/dL RDW 24.9 H (11.5-15.5) % Lymphocytes # (Manual) 0.32 L (1.0-4.8) k/uL Myelocytes # (Manual) 0.05 H (0) k/uL PT 34.1 H (9.0-12.0) sec INR 3.5 H (<1.2) Sodium 130 L (137-145) mmol/L Carbon Dioxide 13 L (22-30) mmol/L BUN 30 H (7-17) mg/dL Creatinine 2.13 H (0.52-1.04) mg/dL Glucose 63 L (74-99) mg/dL Total Bilirubin 21.7 H* (0.2-1.3) mg/dL AST 476 H (14-36) U/L ALT 75 H (9-52) U/L Alkaline Phosphatase 800 H (38-126) U/L Total Protein 5.4 L (6.3-8.2) g/dL Albumin 2.4 L (3.5-5.0) g/dL Prealbumin (18-36) mg/dL 01/12/17 Range/Units 07:21 MCV (80.0-100.0) fL MCHC (31.0-37.0) g/dL RDW (11.5-15.5) % Lymphocytes # (Manual) (1.0-4.8) k/uL Myelocytes # (Manual) (0) k/uL PT (9.0-12.0) sec INR (<1.2) Sodium (137-145) mmol/L Carbon Dioxide (22-30) mmol/L BUN (7-17) mg/dL Creatinine (0.52-1.04) mg/dL Glucose (74-99) mg/dL Total Bilirubin (0.2-1.3) mg/dL AST (14-36) U/L ALT (9-52) U/L Alkaline Phosphatase (38-126) U/L Total Protein (6.3-8.2) g/dL Albumin (3.5-5.0) g/dL Prealbumin 6 L (18-36) mg/dL Microbiology - Last 24 Hours (Table) 01/10/17 16:00 Blood Culture - Preliminary Blood No Growth after 24 hours Assessment and Plan (1) Jaundice Narrative/Plan: Present on admission. Secondary to metastatic disease Status: Acute (2) Pneumonia Narrative/Plan: Suspect due to developing infiltrates as shown on x-ray. Patient on IV antibiotics Status: Acute (3) Metastatic breast cancer Narrative/Plan: Diagnosed in November 2016. Patient has metastases to the liver and spleen Status: Acute (4) Dehydration Narrative/Plan: Due to decreased fluid intake Status: Acute (5) Dyspnea on exertion Narrative/Plan: Present on admission, likely due to metastatic cancer and generalized debility. Status: Acute (6) Generalized weakness Narrative/Plan: Likely due to metastatic breast cancer and pneumonia Status: Acute (7) Elevated liver enzymes Narrative/Plan: Secondary to metastatic disease. Status: Acute (8) Metabolic encephalopathy Narrative/Plan: Due to elevated liver enzymes. Patient received lactulose 1 dose. Awaiting repeat result of ammonia level. Status: Acute (9) Coagulopathy Narrative/Plan: Due to liver disease. Status: Acute Plan: Continue to monitor coagulation studies. INR this morning 3.5. Spoke with Dinah Edouard NP who will place orders for Vitamin K. Monitor liver enzymes and electrolytes. GI Prophylaxis. No DVT prophylaxis needed due to elevated INR. Continue IV antibiotics for suspected pneumonia. Begin Lasix 40 mg IV daily per Dr. Gannon. Currently on hold due to GERALD. Await further recommendations from Dr. Rodriguez regarding metastatic breast cancer. Encourage increased oral intake. Consult placed for dietitian. Dr. Bass requesting PPN. Continue to monitor ammonia levels. Received 1 dose of lactulose. Awaiting results of repeat lab. Continue to monitor vital signs and address appropriately Consult to PT and OT for weakness and debility The above impression and plan of care have been discussed and directed by signing physician. Umu Cruz, nurse practitioner, acting as scribe for signing physician.
[2017-01-12] MEDS ORDERED: PHYTONADIONE 5 MG in SODIUM CHLORIDE 0.9% 50 ML IVPB STA (12:16)
--- NOTE | 2017-01-12 17:10 | P.PN ---
Subjective Principal diagnosis: weakness Pt seen today in follow up, she is more alert and oriented, some nausea, has not vomited yet this AM, she can't lay flat or she had SOB, her belly feels a little less bloated, no BM this AM, no bleeding to report. Objective - Vital Signs Vital signs: Vital Signs Temp 97.5 F L 01/12/17 14:36 Pulse 92 01/12/17 14:36 Resp 16 01/12/17 14:36 BP 107/69 01/12/17 14:36 Pulse Ox 95 01/12/17 14:36 Intake & Output 01/11/17 01/12/17 01/12/17 18:59 06:59 18:59 Intake Total 840 530 Balance 840 530 Weight 102.058 kg 102.058 kg Intake: Intake, IV Titration 840 530 Amount Levofloxacin 750Mg-D5w 150 Pmx 750 mg In Dextrose/ Water 1 150ml.bag @ 100 mls/hr IVPB Q24H [facility] Rx#: [id number] Piperacillin-Tazobactam 3 50 50 .375 gm In Dextrose/Water 1 50ml.bag @ 12.5 mls/hr IVPB Q8HR [facility] Rx#: [id number] Sodium Chloride 0.9% 1, 640 480 000 ml @ 80 mls/hr IV . [id number] [facility] Rx#:[id number] Other: Voiding Method Toilet Toilet # Voids 2 1 - Constitutional General appearance: Present: cooperative, no acute distress, obese - EENT Eyes: Present: scleral icterus - Respiratory Respiratory: bilateral: diminished - Cardiovascular Heart sounds: normal: S1, S2 - Peripheral edema leg Peripheral Edema: bilateral: 1+ - Gastrointestinal General gastrointestinal: Present: distended, normal bowel sounds, soft - Integumentary Integumentary: Present: jaundiced - Neurologic Neurologic: Present: CNII-XII intact - Musculoskeletal Musculoskeletal: Present: generalized weakness - Psychiatric Psychiatric: Present: A&O x's 3, appropriate affect, intact judgment & insight - Labs CBC & Chem 7: 01/12/17 07:21 01/12/17 07:21 Labs: Abnormal Lab Results - Last 24 Hours (Table) 01/12/17 01/12/17 01/12/17 Range/Units 07:21 07:21 07:21 MCV 101.5 H (80.0-100.0) fL MCHC 30.8 L (31.0-37.0) g/dL RDW 24.9 H (11.5-15.5) % Lymphocytes # (Manual) 0.32 L (1.0-4.8) k/uL Myelocytes # (Manual) 0.05 H (0) k/uL PT 34.1 H (9.0-12.0) sec INR 3.5 H (<1.2) Sodium (137-145) mmol/L Carbon Dioxide (22-30) mmol/L BUN (7-17) mg/dL Creatinine (0.52-1.04) mg/dL Glucose (74-99) mg/dL Total Bilirubin (0.2-1.3) mg/dL AST (14-36) U/L ALT (9-52) U/L Alkaline Phosphatase (38-126) U/L Ammonia 59 H (<30) umol/L Total Protein (6.3-8.2) g/dL Albumin (3.5-5.0) g/dL Prealbumin (18-36) mg/dL //17 /17/ Range/Units 07:21 07:21 MCV (80.0-100.0) fL MCHC (31.0-37.0) g/dL RDW (11.5-15.5) % Lymphocytes # (Manual) (1.0-4.8) k/uL Myelocytes # (Manual) (0) k/uL PT (9.0-12.0) sec INR (<1.2) Sodium 130 L (137-145) mmol/L Carbon Dioxide 13 L (22-30) mmol/L BUN 30 H (7-17) mg/dL Creatinine 2.13 H (0.52-1.04) mg/dL Glucose 63 L (74-99) mg/dL Total Bilirubin 21.7 H* (0.2-1.3) mg/dL AST 476 H (14-36) U/L ALT 75 H (9-52) U/L Alkaline Phosphatase 800 H (38-126) U/L Ammonia (<30) umol/L Total Protein 5.4 L (6.3-8.2) g/dL Albumin 2.4 L (3.5-5.0) g/dL Prealbumin 6 L (18-36) mg/dL Microbiology - Last 24 Hours (Table) 01/10/17 16:00 Blood Culture - Preliminary Blood No Growth after 24 hours Assessment and Plan (1) Renal failure Narrative/Plan: Pt kidney function noted to have doubled over night. Concern is for administration of carboplatin chemotherapy as it is cleared through the kidney. Pt will be hydrated, with labs in AM. Have asked nursing to plan another meeting with family for tomorrow afternoon as renal failure could prevent pt from having chemo. Will f/u in AM. Status: Acute (2) Elevated liver enzymes Narrative/Plan: Stable today, ammonia level did slightly increase despite lactulose administration, another dose will be ordered. Status: Acute (3) Jaundice Narrative/Plan: Persistent, bilirubin stable. Secondary to metastatic disease. Pt continues on IVF Status: Acute (4) Metabolic encephalopathy Narrative/Plan: Pt more alert and oriented today, ammonia level did not decrease, LFTs stable. Labs daily, continue fluids Status: Acute (5) Metastatic breast cancer Narrative/Plan: Possible weekly carboplatin, have to reevaluate renal function in AM and evaluate pt. Status: Acute (6) Coagulopathy Narrative/Plan: INR>3, secondary to liever disease. Vit k ordered, PT/INR daily. NO asa, NSAIDs or anticoagulation Status: Acute Plan: >30 min spent counseling pt sister and mother about pt condition, intent of chemo, life expectancy with and without treatment. We discussed palliative care and hospice. All questions answered to the best of my ability. Pt and family are interested in trying weekly chemotherapy that Dr. Cueva discussed with them in the office. Intent being that more frequent, smaller doses could possibly have a bigger impact on the cancer in her liver. Case will be reviewed with Dr. Cueva. If felt appropriate chemo may be ordered inpatient but , that is to be determined. Case was discussed with IM POSTDOCTORAL SCHOLAR and Dietitian. Agreed to hold off on initiation of TPN for now. Pt is still tolerating oral intake-Dietitian observed pt eating [employer] hamburger and greek fries. Nutritional supplements will be ordered by Dietitian. Time with Patient: Greater than 30
[2017-01-12] MEDS: LORazepam 0.5 MG TAB PO PRN (22:31)
[2017-01-13] MEDS: PIPERACILLIN-TAZOBACTAM 3.375 GM in DEXTROSE/WATER 1 50ML.BAG IVPB SCH ×4 (00:25→23:54)
[2017-01-13] MEDS: HYDROmorphone 1 MG/ML 1 ML SYRINGE IVP PRN ×3 (03:27→20:39)
[2017-01-13 07:20] LABS: Calcium 8.1 mg/dL (8.4-10.2); Potassium 4.4 mmol/L (3.5-5.1); Total Protein 5.3 g/dL (6.3-8.2)
[2017-01-13 07:27] LABS: INR 1.3 (<1.2); Prothrombin Time 12.6 sec (9.0-12.0)
[2017-01-13 07:45] LABS: Total Bilirubin 25.6 mg/dL (0.2-1.3)
[2017-01-13 07:54] LABS: Anisocytosis Marked; Aty Lym Flag Slight; CHCM 30.9; HGB 12.6 gm/dL (11.4-16.0); Hypochromasia Moderate; MCH 31.7 pg (25.0-35.0); MCHC 32.3 g/dL (31.0-37.0); MCV 98.3 fL (80.0-100.0); Macrocytosis Moderate; Mean Platelet Volume 9.2; RBC 3.97 m/uL (3.80-5.40); RDW 24.1 % (11.5-15.5); WBC 5.1 k/uL (3.8-10.6); WBC (Perox) 5.66
[2017-01-13] MEDS: SODIUM CHLORIDE 0.9% 1,000 ML IV SCH (08:10)
[2017-01-13] MEDS: SPIRONOLACTONE 25 MG TAB PO SCH (08:12)
[2017-01-13] MEDS: FAMOTIDINE 20 MG TAB PO SCH (08:12)
[2017-01-13] MEDS: PROCHLORPERAZINE 10 MG TAB PO PRN (08:30)
[2017-01-13] MEDS: IPRATROPIUM-ALBUTEROL 3 ML NEB INHALATION SCH ×4 (09:21→19:13)
[2017-01-13 09:46] LABS: Add Differential Manual Differential
[2017-01-13 09:49] LABS: Nucleated Red Blood Cells 0 /100 WBC (0-0); Total Cells Counted 100
[2017-01-13 09:51] LABS: Target Cells Present
--- NOTE | 2017-01-13 12:16 | P.PN ---
Subjective Principal diagnosis: 56-year-old patient seen this morning on rounds with Dr. Gannon. Patient tearful and expressed fears regarding her diagnosis. Patient states she has a little bit of nausea but is attempting to eat breakfast. Sister at bedside and brought patient Eula's. Patient also attempting to eat Magic cups ordered by dietitian. Patient denies any chest pain or shortness of breath at rest. Dr. Gannon discussed the possibility of ECF placement again with patient and family this morning. Patient refusing ECF at this time and sister states she wants to go home with home care. Objective - Vital Signs Vital signs: Vital Signs Temp 97.6 F 01/13/17 07:00 Pulse 88 01/13/17 07:00 Resp 16 01/13/17 07:00 BP 105/55 01/13/17 07:00 Pulse Ox 96 01/13/17 07:00 Intake & Output 01/12/17 01/13/17 01/13/17 18:59 06:59 18:59 Intake Total 530 640 Balance 530 640 Weight 102.058 kg Intake: Intake, IV Titration 530 640 Amount Piperacillin-Tazobactam 3 50 .375 gm In Dextrose/Water 1 50ml.bag @ 12.5 mls/hr IVPB Q8HR [facility] Rx#: [id number] Sodium Chloride 0.9% 1, 480 640 000 ml @ 80 mls/hr IV . [id number] [facility] Rx#:[id number] Other: Voiding Method Toilet Toilet # Voids 1 - Exam GENERAL: Alert and Pleasant. Jaundice. Tearful. RESPIRATORY: Lungs clear bilaterally. No use of accessory muscles. Patient maintaining oxygen saturation greater than 92%. CARDIOVASCULAR: S1 and S2 noted. No murmurs auscultated. No JVD noted. EXTREMITIES: 2-3+ lower extremity edema. Palpable pedal pulses +2. ABDOMEN: Distended, ascites present, bowel sounds auscultated 4 quadrants. No pain or tenderness noted upon palpation. SKIN: Jaundice present - Labs CBC & Chem 7: 01/14/17 06:37 01/14/17 06:37 Labs: Abnormal Lab Results - Last 24 Hours (Table) 01/12/17 01/13/17 01/13/17 Range/Units 07:21 06:21 06:21 RDW 24.1 H (11.5-15.5) % Lymphocytes # (Manual) 0.31 L (1.0-4.8) k/uL PT 12.6 H (9.0-12.0) sec INR 1.3 H (<1.2) Sodium (137-145) mmol/L Carbon Dioxide (22-30) mmol/L BUN (7-17) mg/dL Creatinine (0.52-1.04) mg/dL Glucose (74-99) mg/dL Calcium (8.4-10.2) mg/dL Total Bilirubin (0.2-1.3) mg/dL AST (14-36) U/L ALT (9-52) U/L Alkaline Phosphatase (38-126) U/L Ammonia 59 H (<30) umol/L Total Protein (6.3-8.2) g/dL Albumin (3.5-5.0) g/dL 01/13/17 Range/Units 06:21 RDW (11.5-15.5) % Lymphocytes # (Manual) (1.0-4.8) k/uL PT (9.0-12.0) sec INR (<1.2) Sodium 133 L (137-145) mmol/L Carbon Dioxide 12 L (22-30) mmol/L BUN 35 H (7-17) mg/dL Creatinine 2.21 H (0.52-1.04) mg/dL Glucose 55 L (74-99) mg/dL Calcium 8.1 L (8.4-10.2) mg/dL Total Bilirubin 25.6 H* (0.2-1.3) mg/dL AST 369 H (14-36) U/L ALT 67 H (9-52) U/L Alkaline Phosphatase 793 H (38-126) U/L Ammonia (<30) umol/L Total Protein 5.3 L (6.3-8.2) g/dL Albumin 2.4 L (3.5-5.0) g/dL Microbiology - Last 24 Hours (Table) 01/10/17 16:00 Blood Culture - Preliminary Blood No Growth after 48 hours Assessment and Plan (1) Jaundice Narrative/Plan: Present on admission. Secondary to metastatic disease Status: Acute (2) Pneumonia Narrative/Plan: Suspect due to developing infiltrates as shown on x-ray. Patient on IV antibiotics Status: Acute (3) Metastatic breast cancer Narrative/Plan: Diagnosed in November 2016. Patient has metastases to the liver and spleen Status: Acute (4) Dehydration Narrative/Plan: Due to decreased fluid intake, patient receiving IV hydration Status: Acute (5) Dyspnea on exertion Narrative/Plan: Present on admission, likely due to metastatic cancer and generalized debility. Status: Acute (6) Generalized weakness Narrative/Plan: Likely due to metastatic breast cancer and pneumonia Status: Acute (7) Elevated liver enzymes Narrative/Plan: Secondary to metastatic disease. LFTs remaining stable. Bilirubin increased from 21.7-25.6 this morning Status: Acute (8) Metabolic encephalopathy Narrative/Plan: Due to elevated liver enzymes. Ammonia level from 01/12/2017 was 59. Lactulose 1 dose order Status: Acute (9) Coagulopathy Narrative/Plan: Due to liver disease. Status: Acute (10) GERALD (acute kidney injury) Status: Acute Plan: Continue to monitor coagulation studies. Patient received vitamin K yesterday. INR 1.3 today Monitor liver enzymes and electrolytes. GI Prophylaxis. No DVT prophylaxis needed due to liver disease Continue IV antibiotics for suspected pneumonia. Will repeat chest x-ray. Await further recommendations from Dr. Rodriguez regarding metastatic breast cancer. Encourage increased oral intake. Dr. Bass requesting PPN. Currently on hold at this time. Dietary ordered nutritional supplements. Patient to receive a dose of lactulose for elevated ammonia level. Continue to monitor vital signs and address appropriately PT and OT for weakness and debility Nephrology on consult for acute kidney injury. Continue IV hydration. Lasix on hold at this time The above impression and plan of care have been discussed and directed by signing physician. Umu Cruz, nurse practitioner, acting as scribe for signing physician.
[2017-01-13] MEDS ORDERED: FUROSEMIDE 10 MG/ML 4 ML VIAL IV STA (12:32)
--- NOTE | 2017-01-13 12:51 | P.NPCON ---
History of Present Illness - Reason for Consult acute renal failure - History of Present Illness Reason for consultation: Acute kidney injury History of present illness: Patient is a 56-year-old female seen in renal consultation for acute kidney injury. Her baseline creatinine is 1 and her GFR was at baseline at the time of admission on January 10. Her creatinine on January 12 was elevated at 2.13 and is up to 2.21 today. Patient has history of stage IV breast cancer that was diagnosed about a month ago and she received 1 dose of carboplatin 3 weeks ago. Since then she hasn't been able to make the decision as to whether or not to proceed with chemotherapy. She developed progressive edema in her lower extremities and was receiving Lasix 40 mg IV daily for the last few days. She' s also been maintained on normal saline running at 80 mL an hour. She denies any hematuria. She has been voiding. Her bilirubin level is elevated at 25.6 today. Denies chest pain. Does admit to feeling extremely weak. Her oral intake is also been poor. States she doesn't have an appetite. Patient was also taking Motrin as an outpatient for pain control. She is noted to be extremely acidotic since admission and a bicarb level today is 12. Vital signs are stable. General: The patient appeared well nourished and normally developed. HEENT: Head exam is unremarkable. Neck is without jugular venous distension. Jaundice noted. LUNGS: Lungs are clear to auscultation and percussion. Breath sounds decreased. HEART: Rate and Rhythm are regular. First and second heart sounds normal. No murmurs, rubs or gallops. ABDOMEN: Abdominal exam reveals normal bowel sounds. Non-tender and non- distended. EXTREMITITES: 2+ edema. Past Medical History Past Medical History: Cancer Additional Past Medical History / Comment(s): molar . dx with breast ca mets to liver ,bone and abd cavity 12-12-16 History of Any Multi-Drug Resistant Organisms: None Reported Past Surgical History: Adenoidectomy, Hysterectomy, Tonsillectomy Additional Past Surgical History / Comment(s): molar , benign right breast lump removed 1993, D&C in the Past Anesthesia/Blood Transfusion Reactions: No Reported Reaction Additional Past Anesthesia/Blood Transfusion Reaction / Comment(s): blood transfusion-had reation to it - [facility]. Smoking Status: Former smoker - Past Family History Daughter(s) Family Medical History: Myocardial Infarction ([place]) Additional Family Medical History / Comment(s): in 2008 from a heartattack. Mother Family Medical History: No Reported History Father Family Medical History: Hypertension, Myocardial Infarction ([place]) Medications and Allergies Home Medications Medication Instructions Recorded Confirmed Type Ibuprofen [Motrin] 200 mg PO BID 12/12/16 01/10/17 History Ranitidine HCl [Zantac] 150 mg PO DAILY 12/21/16 01/10/17 History LORazepam [Ativan] 0.5 mg PO Q6H PRN 01/10/17 01/10/17 History Prochlorperazine [Compazine] 10 mg PO Q6H PRN 01/10/17 01/10/17 History Spironolactone [Aldactone] 50 mg PO Q12H 01/10/17 01/10/17 History oxyCODONE HCL [Roxicodone] 5 mg PO Q12H PRN 01/10/17 01/10/17 History Allergies Allergy/AdvReac Type Severity Reaction Status Date / Time codeine Allergy Rash/Hives Verified 01/10/17 11:44 Physical Exam Vitals: Vital Signs Temp Pulse Resp BP Pulse Ox 01/13/17 07:00 97.6 F 88 16 105/55 96 01/12/17 21:05 97.0 F L 100 28 H 119/66 96 01/12/17 14:36 97.5 F L 92 16 107/69 95 Intake and Output 01/12/17 01/13/17 01/13/17 22:59 06:59 14:59 Intake Total 640 Balance 640 Intake: Intake, IV Titration 640 Amount Sodium Chloride 0.9% 1, 640 000 ml @ 80 mls/hr IV . [id number] [facility] Rx#:[id number] Other: Voiding Method Toilet Toilet # Voids 2 1 Results - Lab Results Most recent lab results Calcium 8.1 mg/dL (8.4-10.2) L 01/13/17 06:21 Magnesium 2.1 mg/dL (1.6-2.3) 01/10/17 10:29 01/13/17 06:21 01/13/17 06:21 Assessment and Plan Plan: Assessment: #1. Nonoliguric acute kidney injury. Doubt this is carboplatin toxicity as she hasn't received a dose in about 3 weeks - I will check a UA as well as a magnesium level as carboplatin can lead to magnesium wasting and also hemorrhagic cystitis. Again the patient denies any gross hematuria. 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 Her renal function has been worsening the last few days and creatinine is up at 2.21 today. She is also been receiving IV Lasix in the last few days for edema which can be a contributing factor. #2. Stage IV breast cancer with metastatic disease. #3. Hypervolemic hyponatremia. #4. Metabolic acidosis secondary to acute kidney injury. #5. Hyperkalemia secondary to use of Aldactone and metabolic acidosis. Resolved. Plan: Hep-Lock IV fluids. Lasix 40 mg IV once today. Start oral sodium bicarbonate 1300 mg twice daily. Check magnesium level. Check uric acid level. Check urinalysis. Check renal ultrasound. Check postvoid residual to make sure there is no underlying urinary retention. Repeat electrolytes in the morning. Discontinue Aldactone. Family meeting at 2 PM today. Thank you for the consultation. I will continue to follow the patient with you during her hospital stay.
[2017-01-13 12:59] LABS: Magnesium 2.1 mg/dL (1.6-2.3)
[2017-01-13] MEDS: LORazepam 0.5 MG TAB PO PRN ×2 (13:38→21:53)
[2017-01-13] MEDS ORDERED: LEVOFLOXACIN 750MG-D5W PMX 750 MG in DEXTROSE/WATER 1 150ML.BAG IVPB SCH (15:00)
--- NOTE | 2017-01-13 17:50 | P.PN ---
Subjective The patient is markedly jaundiced. She has been quite drowsy and sleepy, but arousable. Affect and cognition are slowed, though mostly appropriate. The pain is controlled with medication. She is progressive welling of her lower extremities, and accumulation of ascites. Objective - Vital Signs Vital signs: Vital Signs Temp 97.6 F 01/13/17 07:00 Pulse 83 01/13/17 15:39 Resp 18 01/13/17 15:00 BP 108/66 01/13/17 15:00 Pulse Ox 97 01/13/17 15:00 Intake & Output 01/12/17 01/13/17 01/13/17 18:59 06:59 18:59 Intake Total 530 640 290 Balance 530 640 290 Weight 102.058 kg Intake: Intake, IV Titration 530 640 290 Amount Piperacillin-Tazobactam 3 50 50 .375 gm In Dextrose/Water 1 50ml.bag @ 12.5 mls/hr IVPB Q8HR [facility] Rx#: [id number] Sodium Chloride 0.9% 1, 480 640 240 000 ml @ 80 mls/hr IV . [id number] [facility] Rx#:[id number] Other: Voiding Method Toilet Toilet # Voids 1 - Constitutional Constitutional Comment(s): Sleepy, lethargic, but arousable - EENT Eyes: Present: scleral icterus ENT: Present: hearing grossly normal, normal oropharynx - Respiratory Respiratory: bilateral: CTA - Cardiovascular Rhythm: regular Heart sounds: normal: S1, S2 - Gastrointestinal Gastrointestinal Comment(s): Free fluid by exam General gastrointestinal: Present: distended - Integumentary Integumentary: Present: jaundiced - Neurologic Neurologic: Present: CNII-XII intact - Musculoskeletal Musculoskeletal: Present: generalized weakness, strength equal bilaterally - Psychiatric Psychiatric Comment(s): Affect, and cognition are definitely slowed Psychiatric: Present: A&O x's 3 - Labs CBC & Chem 7: 01/13/17 06:21 01/13/17 06:21 Labs: Abnormal Lab Results - Last 24 Hours (Table) 01/13/17 01/13/17 01/13/17 Range/Units 06:21 06:21 06:21 RDW 24.1 H (11.5-15.5) % Lymphocytes # (Manual) 0.31 L (1.0-4.8) k/uL PT 12.6 H (9.0-12.0) sec INR 1.3 H (<1.2) Sodium 133 L (137-145) mmol/L Carbon Dioxide 12 L (22-30) mmol/L BUN 35 H (7-17) mg/dL Creatinine 2.21 H (0.52-1.04) mg/dL Glucose 55 L (74-99) mg/dL Uric Acid (3.7-7.4) mg/dL Calcium 8.1 L (8.4-10.2) mg/dL Total Bilirubin 25.6 H* (0.2-1.3) mg/dL AST 369 H (14-36) U/L ALT 67 H (9-52) U/L Alkaline Phosphatase 793 H (38-126) U/L Total Protein 5.3 L (6.3-8.2) g/dL Albumin 2.4 L (3.5-5.0) g/dL 01/13/17 Range/Units 06:21 RDW (11.5-15.5) % Lymphocytes # (Manual) (1.0-4.8) k/uL PT (9.0-12.0) sec INR (<1.2) Sodium (137-145) mmol/L Carbon Dioxide (22-30) mmol/L BUN (7-17) mg/dL Creatinine (0.52-1.04) mg/dL Glucose (74-99) mg/dL Uric Acid 8.0 H (3.7-7.4) mg/dL Calcium (8.4-10.2) mg/dL Total Bilirubin (0.2-1.3) mg/dL AST (14-36) U/L ALT (9-52) U/L Alkaline Phosphatase (38-126) U/L Total Protein (6.3-8.2) g/dL Albumin (3.5-5.0) g/dL Microbiology - Last 24 Hours (Table) 01/10/17 16:00 Blood Culture - Preliminary Blood No Growth after 48 hours Assessment and Plan (1) Hyperbilirubinemia Narrative/Plan: The patient's bilirubin continues to increase. Clinically, this indicates progressive disease in the liver, as well as ineffectiveness of her initial chemotherapy. Rate of progression of bilirubin, is consistent with the hepatic failure. Status: Acute (2) GERALD (acute kidney injury) Narrative/Plan: The patient has been seen by nephrology, and the recommendations noted and appreciated. Given her clinical situation now, there is concern that the patient is developing hepatorenal syndrome. Status: Acute (3) Metastatic breast cancer Narrative/Plan: Progressive liver failure and renal injury, are felt to be related to her metastatic breast cancer. As noted, rapid decline in liver function, is felt to be due to progression of metastatic disease in the liver, and the kidney injury is most likely secondary related to that. This portends a very poor prognosis. I had an extensive discussion with the the patient, as well as her family. In her current situation, chances of reversing her disease effectively and quickly enough to affect prognosis are unfortunately very slim. Most of the approved chemotherapies, would have a very high risk of even further toxicity, due to her severe liver insufficiency. That is the reason, by carboplatin was initially used. However it does not appear to have been effective, and the patient has now developed renal injury, which would increase risk of toxicity from carboplatin substantially. The patient can be placed on hormonal manipulation, but again the chances of achieving a substantial response , and that is to rapidly enough to make a difference, very slim. Therefore in my opinion consideration of comfort care was felt to be very appropriate. The family were quite receptive to the idea of comfort care. However the patient stated that she needed more time to make that decision. She did want to be started on the hormonal manipulation. Though this intervention, in my opinion, would have a very low chances of efficacy, he should not have any major side effects at least. Therefore this will be ordered. I also had an extensive discussion regarding CODE STATUS. The patient is a full code, which is not felt to be medically appropriate, given her current situation and very poor prognosis. She was advised that in this case, CPR or intubation would have very low chances of having any benefit and would actually have a much higher chance of leading to increased pain and discomfort. The patient initially was reluctant to change her CODE STATUS, but I did state to her clearly that in my opinion CPR or intubation, would be medically futile. The family subsequently informed us, that they had decided to change her to no code. Therefore, for now continue current medical management. A I will be added. If the patient deteriorates, then she should be transitioned to full comfort care. Status: Acute
[2017-01-13] MEDS: LETROZOLE 2.5 MG TAB PO SCH (18:17)
[2017-01-13] MEDS: SODIUM BICARBONATE TAB 650 MG TAB PO SCH (20:40)
[2017-01-14 00:10] LABS: Appearance,Urine Cloudy (Clear); Bilirubin,Urine 2+ (Negative); Glucose,Urine (UA) Negative (Negative); Ketones,Urine Negative (Negative); Leukocyte Esterase,Urine Negative (Negative); Mucus,Urine Rare /hpf; Nitrite,Urine Negative (Negative); Particle Count 15674; Protein,Urine Negative (Negative); RBC,Urine <1 /hpf (0-5); Specific Gravity,Urine 1.007 (1.001-1.035); Squamous Epithelial Cell,Urine 1 /hpf (0-4); UA Billing (MACRO vs. MICRO) MICRO; Urobilinogen,Urine <2.0 mg/dL (<2.0); WBC,Urine 3 /hpf (0-5)
[2017-01-14] MEDS: HYDROmorphone 1 MG/ML 1 ML SYRINGE IVP PRN ×3 (03:52→20:01)
[2017-01-14 06:54] LABS: Anisocytosis Marked; CH 30.4; CHCM 31.9; HCT 37.8 % (34.0-46.0); HDW 2.97; HGB 12.2 gm/dL (11.4-16.0); Hypochromasia Slight; MCH 31.2 pg (25.0-35.0); MCHC 32.2 g/dL (31.0-37.0); MCV 96.6 fL (80.0-100.0); Macrocytosis Moderate; Mean Platelet Volume 8.5; RBC 3.91 m/uL (3.80-5.40); RDW 24.1 % (11.5-15.5); WBC 6.6 k/uL (3.8-10.6)
[2017-01-14 07:08] LABS: Calcium 8.2 mg/dL (8.4-10.2); Total Protein 5.4 g/dL (6.3-8.2)
[2017-01-14 07:17] LABS: Total Bilirubin 28.3 mg/dL (0.2-1.3)
--- NOTE | 2017-01-14 07:56 | XR ---
EXAMINATION TYPE: XR chest 1V DATE OF EXAM: 01/14/2017 COMPARISON: 01/12/2017 HISTORY: Pneumonia TECHNIQUE: Single frontal view of the chest is obtained. FINDINGS: There is a relative poor respiration. There is no heart failure. There is some linear dens ity at the lung bases. Heart is top normal in size. There are is no definite pleural effusion. IMPRESSION: Poor inspiration with mild atelectasis at the lung bases that is similar to last exam. N o heart failure seen.
[2017-01-14] MEDS: IPRATROPIUM-ALBUTEROL 3 ML NEB INHALATION SCH ×4 (08:32→19:21)
[2017-01-14] MEDS: LETROZOLE 2.5 MG TAB PO SCH (08:40)
[2017-01-14] MEDS: PIPERACILLIN-TAZOBACTAM 3.375 GM in DEXTROSE/WATER 1 50ML.BAG IVPB SCH ×2 (08:40→15:42)
[2017-01-14] MEDS: SODIUM BICARBONATE TAB 650 MG TAB PO SCH ×2 (08:40→20:08)
[2017-01-14] MEDS: FAMOTIDINE 20 MG TAB PO SCH (08:40)
[2017-01-14] MEDS ORDERED: ALBUMIN HUMAN 25% 50 ML in EMPTY BAG 1 BAG IVPB ONE (09:30)
[2017-01-14] MEDS ORDERED: FUROSEMIDE 10 MG/ML 4 ML VIAL IV ONE (10:00)
--- NOTE | 2017-01-14 10:22 | P.PN ---
Subjective Principal diagnosis: This is a 56-year-old female seen in consultation with acute kidney injury. She has severe liver disease with metastatic CA of the breast. Her prognosis is rather poor based on oncology notes, she was given carboplatin about 4 weeks ago 1 dose. She is unable to receive any other chemotherapy because of the severe liver disease. Discussions of hospice has been had with the patient and she wanted more aggressive treatment. She agreed to a no code decision yesterday. Her condition seems to be worsening with creatinine going up from 1 on 2016 to 2.13 on and to 2.5 this morning. She remains hypotensive blood pressure is in the 90 to systolic to 101 systolic. Urine output is not documented and patient does admit to small amounts of urine. She is very ill extremely jaundiced worsening bilirubin. She is awake and alert seems to be oriented. His poor appetite but no nausea vomiting diarrhea no abdominal pain. Objective - Vital Signs Vital signs: Vital Signs Temp 98.8 F 01/14/17 07:00 Pulse 86 01/14/17 07:00 Resp 16 01/14/17 07:00 BP 92/53 01/14/17 07:00 Pulse Ox 98 01/14/17 07:00 Intake & Output 01/13/17 01/14/17 01/14/17 18:59 06:59 18:59 Intake Total 290 50 Balance 290 50 Intake: Intake, IV Titration 290 50 Amount Piperacillin-Tazobactam 3 50 50 .375 gm In Dextrose/Water 1 50ml.bag @ 12.5 mls/hr IVPB Q8HR [facility] Rx#: [id number] Sodium Chloride 0.9% 1, 240 000 ml @ 80 mls/hr IV . [id number] [facility] Rx#:[id number] Other: Voiding Method Toilet Toilet Toilet Bedside Commode # Voids 1 Severely jaundiced ill-looking female. A chin exam no JVP neck is supple no facial asymmetry Lungs are clear clear to auscultation with good air entry bilaterally normal to percussion Heart sounds are unremarkable for any murmur rub gallop Abdomen soft nontender. It is distended and there seems to be some masses felt. There may be ascites as well. Extremity exam reveals trace edema Neurologically awake alert oriented no asterixis. - Labs CBC & Chem 7: 01/14/17 06:37 01/14/17 06:37 Labs: Abnormal Lab Results - Last 24 Hours (Table) 01/13/17 01/13/17 01/14/17 Range/Units 06:21 23:40 06:37 RDW (11.5-15.5) % Sodium 131 L (137-145) mmol/L Carbon Dioxide 15 L (22-30) mmol/L BUN 41 H (7-17) mg/dL Creatinine 2.50 H (0.52-1.04) mg/dL Glucose 67 L (74-99) mg/dL Uric Acid 8.0 H (3.7-7.4) mg/dL Calcium 8.2 L (8.4-10.2) mg/dL Total Bilirubin 28.3 H* (0.2-1.3) mg/dL AST 333 H (14-36) U/L ALT 66 H (9-52) U/L Alkaline Phosphatase 821 H (38-126) U/L Total Protein 5.4 L (6.3-8.2) g/dL Albumin 2.4 L (3.5-5.0) g/dL Urine Appearance Cloudy H (Clear) Urine Bilirubin 2+ H (Negative) Urine Mucus Rare H (None) /hpf 01/14/17 Range/Units 06:37 RDW 24.1 H (11.5-15.5) % Sodium (137-145) mmol/L Carbon Dioxide (22-30) mmol/L BUN (7-17) mg/dL Creatinine (0.52-1.04) mg/dL Glucose (74-99) mg/dL Uric Acid (3.7-7.4) mg/dL Calcium (8.4-10.2) mg/dL Total Bilirubin (0.2-1.3) mg/dL AST (14-36) U/L ALT (9-52) U/L Alkaline Phosphatase (38-126) U/L Total Protein (6.3-8.2) g/dL Albumin (3.5-5.0) g/dL Urine Appearance (Clear) Urine Bilirubin (Negative) Urine Mucus (None) /hpf Microbiology - Last 24 Hours (Table) 01/10/17 16:00 Blood Culture - Preliminary Blood No Growth after 72 hours Assessment and Plan Plan: Impression. 1. Acute kidney injury secondary to combination of low blood pressure, severe liver disease with possible hepatorenal syndrome. She did get 1 dose of carboplatin about 4 weeks ago but her creatinine until few days ago was normal therefore unlikely to be carboplatin related. 2. mild hyponatremia sodium 131 secondary to acute kidney injury and hepatorenal syndrome. 3. Gap and non-gap acidosis secondary to acute kidney injury 4. Severe liver disease secondary to metastatic CA of the breast with bilirubin going up from 21-28, liver function tests worsening. Ammonia is improved from 59-26. 5. Computed tomography scan evidence on 12/12/2016 off diffuse metastatic disease in the liver, peritoneum bones, and left adrenal mass Recommendation. Given the poor prognosis from her malignancy with diffuse metastatic disease and acute kidney injury secondary to likely hepatorenal syndrome and hypotension , discussed with one of the family members who was her sister regarding the prognosis. Patient has been prescribed albumin infusion which are satisfactory. Possibility of a abdominal compartment syndrome is raised. Given the possibility of comfort care and holding off any further workup such as getting the bladder pressure to ascertain if we should proceed with drainage of ascites. Will obtain ultrasound of the abdomen and see if there is significant increase in left-sided from previous computed tomography scan a month ago. Other possibilities of treating hepatorenal syndromes are the usual cocktail. I will hold off on that for right now
[2017-01-14] MEDS: PROCHLORPERAZINE 10 MG TAB PO PRN (11:18)
--- NOTE | 2017-01-14 12:03 | US ---
EXAMINATION TYPE: US abdomen limited DATE OF EXAM: 01/14/2017 COMPARISON: US 2017 CLINICAL HISTORY: check for worsening of ascites; jaundice; pneumonia; metastatic breast CA Ascites is noted in three of four abdominal quadrants with largest pocket in RLQ = 7.7cm A/P and less er amount in LLQ = 4.6cm A/P. IMPRESSION: There is moderate ascites demonstrated.
[2017-01-14] MEDS: LORazepam 0.5 MG TAB PO PRN (12:32)
--- NOTE | 2017-01-14 15:29 | PN ---
SUBJECTIVE: This is a white female. She appears more jaundiced, sleepy and drowsy. She has a large amount of edema, increased weight gain. Abdominal ultrasound showed ascites in ( ) quadrants of the abdomen. We are going to give her albumin today, was followed by Katy to get some of the third spacing down and ascites down. Blood pressure is low 100s over 60s. Pulse is in the 70s to 80s. Respiratory is 16 to 18. O2 is 97% on room air. Temp is 97.6. CARDIOVASCULAR: S1 and S2. PSYCH: Fair mood affect. NEUROLOGIC: Alert and oriented x3. GI: At this time, ( ) ascites, ascitic wave. Creatinine is increased to 2.5 from 2.2 yesterday. Bilirubin is increased ( ). Blood cultures are negative. ASSESSMENT: 1. Hyperbilirubinemia secondary to metastatic breast cancer progressing, failed initial chemotherapy. 2. Acute hepatic failure. 3. Acute on chronic renal insufficiency, possible hepatorenal syndrome. 4. Metastatic breast cancer, failing due to toxicity of the carboplatin. She had been placed on hormonal manipulation with poor prognosis per oncologist. Possible comfort care will be needed if she does not improve in the next few days. She is NO CODE at this time, possible comfort care. MTDD
[2017-01-14 23:49] VITALS: BP 88/58; TEMP 97.3
[2017-01-15] MEDS: PIPERACILLIN-TAZOBACTAM 3.375 GM in DEXTROSE/WATER 1 50ML.BAG IVPB SCH ×2 (00:19→05:32)
[2017-01-15] MEDS ORDERED: ACETAMINOPHEN SUPPOSITORY 650 MG SUPP RECTAL PRN (01:07)
[2017-01-15] MEDS ORDERED: HYDROmorphone (PF) 50 MG in SODIUM CHLORIDE 0.9% 245 ML IV SCH (01:15)
[2017-01-15] MEDS ORDERED: LORazepam 2 MG/ML SYRINGE IV PRN ×2 (02:01→02:05)
[2017-01-15 04:01] VITALS: PULSE 75
[2017-01-15 07:28] VITALS: RESP 6
[2017-01-15] MEDS: FAMOTIDINE 20 MG TAB PO SCH (07:31)
[2017-01-15] MEDS: LETROZOLE 2.5 MG TAB PO SCH (07:31)
[2017-01-15] MEDS: SODIUM BICARBONATE TAB 650 MG TAB PO SCH (07:31)
[2017-01-15] MEDS: IPRATROPIUM-ALBUTEROL 3 ML NEB INHALATION SCH (08:42)
== END 2017-01-15 11:54 | disposition hospice, inpatient (51) | DRG 193 ==
LOC: SUPCPDRO 09:54 → EC 09:54 → 5ONC 14:18
PROVIDERS: ADMIT Family Medicine; ATTEND Family Medicine
DX: J18.9 Pneumonia, unspecified organism (principal); G93.41 Metabolic encephalopathy; K72.00 Acute and subacute hepatic failure without coma; K76.7 Hepatorenal syndrome; N17.9 Acute kidney failure, unspecified; D68.4 Acquired coagulation factor deficiency; C78.6 Secondary malignant neoplasm of retroperitoneum and peritoneum; R18.8 Other ascites; C78.89 Secondary malignant neoplasm of other digestive organs; C78.7 Secondary malignant neoplasm of liver and intrahepatic bile duct; E87.1 Hypo-osmolality and hyponatremia; E87.2 Acidosis; Z66 Do not resuscitate; Z51.5 Encounter for palliative care; E87.5 Hyperkalemia; E87.70 Fluid overload, unspecified; N18.9 Chronic kidney disease, unspecified; E86.0 Dehydration; I95.9 Hypotension, unspecified; C50.911 Malignant neoplasm of unspecified site of right female breast; Z79.899 Other long term (current) drug therapy; Z87.891 Personal history of nicotine dependence; Z90.710 Acquired absence of both cervix and uterus; Z88.5 Allergy status to narcotic agent
CPT/HCPCS: 36415; 71010; 71020; 76705; 80053; 81001; 82140; 82150; 82550; 82553; 83690; 83735; 83880; 84134; 84550; 85025; 85027; 85610; 85730; 87040; 94640; 94760; 96365; 96366; 96375; 96376; 99285

== ENCOUNTER 2017-01-15 11:57 | Inpatient (IN) | payer MEDICAID ==
[2017-01-15 12:38] VITALS: BMI 34.2
[2017-01-15] MEDS ORDERED: ACETAMINOPHEN SUPPOSITORY 650 MG SUPP RECTAL PRN (12:52)
[2017-01-15] MEDS ORDERED: ONDANSETRON 4 MG/2 ML VIAL IVP PRN (12:52)
[2017-01-15] MEDS ORDERED: SCOPOLAMINE 1.5MG/72HR PATCH TRANSDERM PRN (12:52)
[2017-01-15] MEDS: LORazepam 2 MG/ML SYRINGE IV PRN (19:54)
[2017-01-15] MEDS: HYDROmorphone (PF) 50 MG in SODIUM CHLORIDE 0.9% 245 ML IV SCH (19:57)
[2017-01-15] MEDS ORDERED: ATROPINE OPHTH SOLN 1% 5ML BTL SUBLINGUAL PRN (22:13)
[2017-01-16] MEDS: HYDROmorphone (PF) 50 MG in SODIUM CHLORIDE 0.9% 245 ML IV SCH (00:08)
[2017-01-16] MEDS: LORazepam 2 MG/ML SYRINGE IV PRN (02:28)
[2017-01-16 02:58] VITALS: RESP 4
--- NOTE | 2017-01-16 06:11 | PN ---
SUBJECTIVE: This is a 56-year-old white female with end-stage breast cancer, metastasis to the liver. Having no chest pain, shortness of breath. Patient is on comfort care at this time. She does not appear to have increased phlegm production or mucus. She is on comfort measures, obtunded. ASSESSMENT: 1. Breast cancer with liver metastases. 2. Severe encephalopathy secondary to breast cancer and liver metastasis. Continue next 24 to 48 hours. Comfort measures continued. MTDD
[2017-01-16] MEDS ORDERED: BISACODYL 10 MG SUPP RECTAL SCH (09:00)
== END 2017-01-16 04:16 | disposition expired | DRG 435 ==
LOC: 5ONC 11:57
PROVIDERS: ADMIT Family Medicine; ATTEND Family Medicine
DX: C78.7 Secondary malignant neoplasm of liver and intrahepatic bile duct (principal); G93.40 Encephalopathy, unspecified; C50.919 Malignant neoplasm of unspecified site of unspecified female breast; Z66 Do not resuscitate; Z51.5 Encounter for palliative care; Z79.899 Other long term (current) drug therapy; Z88.5 Allergy status to narcotic agent